=== PATIENT | female | born 1980 | race Caucasian/White ===

== ENCOUNTER → 2017-03-18 10:15 | Outpatient (CLI) | payer OTHER, SELFPAY ==
--- NOTE | 2017-03-18 10:19 | RAD_ITS ---
STUDY: X-RAY CHEST REASON FOR EXAM: Female, 36 years old. Cough and chest congestion. TECHNIQUE: PA and lateral views of the chest. COMPARISON: None. FINDINGS: The lungs are clear and expanded. Scattered calcified granulomas. There is no demonstrated pleural abnormality. Normal size heart. Normal mediastinum and mckay. Normal visualized pulmonary arteries. Normal visualized aortic arch and descending thoracic aorta. Normal visualized thoracic spine. Normal visualized ribs, clavicles, and shoulders. There is no demonstrated abnormality of the visualized soft tissue structures of the upper abdomen. RAD/Chest PA and Lateral IMPRESSION: No acute abnormality is seen. Electronically Signed: Elder Alarcon MD at 10:45 EST Tel [phone], Service support ,
== END ==
PROVIDERS: Family Provider Internal Medicine; PCP Internal Medicine; Visit Provider Internal Medicine
DX: R09.89 Other specified symptoms and signs involving the circulatory and respiratory systems (principal)
CPT/HCPCS: 71046

== ENCOUNTER → 2017-07-30 07:56 | Outpatient (CLI) | payer OTHER, SELFPAY ==
[2017-07-30 10:41] LABS: Hemoglobin A1c 5.3 % (4.2-6.3)
[2017-07-30 10:45] LABS: AST(SGOT) 31 U/L (15-37); Alanine Aminotransfer ALT/SGPT 45 U/L (13-56); Albumin, Serum 3.6 g/dL (3.2-5.0); Alkaline Phosphatase 55 U/L (45-117); Anion Gap 8 (5-15); BUN 12 mg/dL (7-18); BUN/Creat Ratio 17.2 RATIO (10-20); Calcium,Total 8.1 mg/dL (8.5-10.1); Chloride 109 mmol/L (98-107); EST Glomerular Filtration Rate 100 mL/min (>60); Est Glom Filt Rate - Afr Amer 121 mL/min (>60); Free T3 2.8 pg/mL (2.18-3.98); Globulin 3.6 g/dL (2.2-4.2); Glucose 82 mg/dL (74-106); Potassium 3.7 mmol/L (3.5-5.1); Protein, Total 7.2 g/dL (6.4-8.2); Sodium Level 144 mmol/L (136-145); T4 Free Direct 1.06 ng/dL (0.76-1.46); Thyroid Stim Hormone (TSH) 1.95 uIU/mL (0.358-3.74)
== END ==
PROVIDERS: Family Provider Internal Medicine; PCP Internal Medicine; Visit Provider Internal Medicine Endocrinology, Diabetes & Metabolism
DX: E28.2 Polycystic ovarian syndrome (principal); E03.9 Hypothyroidism, unspecified
CPT/HCPCS: 36415; 80053; 83036; 84439; 84443; 84481

== ENCOUNTER → 2017-12-13 08:17 | Outpatient (CLI) | payer OTHER, SELFPAY ==
[2017-12-13 10:20] LABS: Hemoglobin A1c 5.3 % (4.2-6.3)
[2017-12-13 10:31] LABS: BUN 11 mg/dL (7-18); Creatinine, Serum 0.69 mg/dL (0.55-1.02); Glucose 84 mg/dL (74-106)
[2017-12-13 10:32] LABS: AST(SGOT) 21 U/L (15-37); Alanine Aminotransfer ALT/SGPT 43 U/L (13-56); Albumin, Serum 3.7 g/dL (3.2-5.0); Alkaline Phosphatase 62 U/L (45-117); Anion Gap 12 (5-15); BUN/Creat Ratio 15.9 RATIO (10-20); Calcium,Total 8.7 mg/dL (8.5-10.1); Chloride 104 mmol/L (98-107); EST Glomerular Filtration Rate 101 mL/min (>60); Est Glom Filt Rate - Afr Amer 122 mL/min (>60); Globulin 3.8 g/dL (2.2-4.2); Potassium 4.1 mmol/L (3.5-5.1); Protein, Total 7.5 g/dL (6.4-8.2); Sodium Level 142 mmol/L (136-145)
== END ==
PROVIDERS: Family Provider Internal Medicine; PCP Internal Medicine; Referring Provider Internal Medicine Endocrinology, Diabetes & Metabolism; Visit Provider Internal Medicine Endocrinology, Diabetes & Metabolism
DX: E03.9 Hypothyroidism, unspecified (principal); E28.2 Polycystic ovarian syndrome
CPT/HCPCS: 36415; 80053; 83036; 84443

== ENCOUNTER → 2018-05-07 07:18 | Outpatient (CLI) | payer OTHER, SELFPAY ==
[2018-04-04 11:23] VITALS: BMI 48.4
--- NOTE | 2018-05-07 07:23 | BI_ITS ---
MAMMOGRAPHY - BILATERAL SCREENING 3-D VICKIE SYNTHESIS REASON FOR EXAM: Female, 37 years old. Bilateral Screening 3-D tomosynthesis PERTINENT HISTORY: No significant family history. TECHNIQUE: 2-D mammograms and 3-D Vickie synthesis of the breast (s) were performed. CAD was performed. COMPARISON: September 04, 2010 FINDINGS: The breast composition is almost entirely fat. Scattered benign calcifications are stable. There are stable. No dense spiculated masses or suspicious microcalcifications are identified. No architectural distortion is identified. There is no skin thickening or retraction. There has been no significant change since the prior study. BI/SCREENING MAMM (CAD), BILAT IMPRESSION: No mammographic signs of malignancy. Routine yearly mammograms recommended. ASSESSMENT CATEGORY: BIRADS Category 2: Benign. A letter regarding these results will be sent to the patient by the facility within 30 days. FOLLOW UP RECOMMENDATION: Yearly follow up mammogram recommended. (A) Approximately 10% of breast cancers are not detected by mammography. A normal mammogram should not delay biopsy of a clinically suspicious abnormality. Electronically Signed: Sal Gibson MD at 17:41 EDT , Service support ,
== END ==
PROVIDERS: Family Provider Internal Medicine; PCP Internal Medicine; Referring Provider Nurse Practitioner Women's Health; Visit Provider Nurse Practitioner Women's Health
DX: Z12.31 Encounter for screening mammogram for malignant neoplasm of breast (principal)
CPT/HCPCS: 77063; 77067

== ENCOUNTER → 2018-05-10 10:02 | Outpatient (CLI) | payer OTHER, SELFPAY ==
[2018-05-10 09:33] VITALS: BMI 48.7
[2018-05-10 12:42] LABS: HIV - WCH Non-Reactive (Nonreactive)
[2018-05-10 13:00] LABS: Chlamydia Trachomatis by PCR Negative (Negative); Neisserai gonorrhoeae by PCR Negative (Negative); Probe Check PASS; Sample Adequacy Control PASS; Specimen Processing Control PASS
[2018-05-11 20:07] LABS: HCV Quant. RNA PCR HCV Not Detected IU/mL (.)
[2018-05-12 14:50] LABS: HSV 2 IgG < 0.91 index (0.00-0.90)
[2018-05-13 01:30] LABS: Rapid Plasmin Reagin (RPR) NONREACTIVE (NONREACTIVE)
== END ==
PROVIDERS: Family Provider Internal Medicine; PCP Internal Medicine; Referring Provider Nurse Practitioner Women's Health; Visit Provider Nurse Practitioner Women's Health
DX: Z11.3 Encounter for screening for infections with a predominantly sexual mode of transmission (principal)
CPT/HCPCS: 36415; 86592; 86695; 86696; 86703; 87491; 87522; 87591

== ENCOUNTER → 2018-06-27 | Outpatient (CLI) | payer OTHER, SELFPAY ==
[2018-05-10 09:33] VITALS: BMI 48.7
[2018-06-27 10:31] LABS: Hemoglobin A1c 5.3 % (4.2-6.3)
[2018-06-27 10:48] LABS: AST(SGOT) 15 U/L (15-37); Alanine Aminotransfer ALT/SGPT 25 U/L (13-56); Albumin, Serum 3.7 g/dL (3.2-5.0); Alkaline Phosphatase 59 U/L (45-117); Anion Gap 8 (5-15); BUN 13 mg/dL (7-18); BUN/Creat Ratio 17.2 RATIO (10-20); Calcium,Total 8.9 mg/dL (8.5-10.1); Chloride 105 mmol/L (98-107); Cholesterol 158 mg/dL (200); Creatinine, Serum 0.76 mg/dL (0.55-1.02); EST Glomerular Filtration Rate 91 mL/min (>60); Est Glom Filt Rate - Afr Amer 110 mL/min (>60); Globulin 3.7 g/dL (2.2-4.2); Glucose 88 mg/dL (74-106); High Density Lipoprotein 42 mg/dL; Potassium 3.8 mmol/L (3.5-5.1); Protein, Total 7.4 g/dL (6.4-8.2); Sodium Level 139 mmol/L (136-145); T4 Free Direct 1.06 ng/dL (0.76-1.46); Thyroid Stim Hormone (TSH) 2.27 uIU/mL (0.358-3.74); Triglycerides 152 mg/dL; Very Low Density Lipoprotein 30 mg/dL (5-40)
== END | disposition home or self-care (01) ==
LOC: MTLAB 08:02
PROVIDERS: Family Provider Internal Medicine; PCP Internal Medicine; Referring Provider Internal Medicine Endocrinology, Diabetes & Metabolism; Visit Provider Internal Medicine Endocrinology, Diabetes & Metabolism
DX: E28.2 Polycystic ovarian syndrome (principal)
CPT/HCPCS: 36415; 80053; 80061; 83036; 84439; 84443

== ENCOUNTER → 2019-06-28 08:09 | Outpatient (CLI) | payer OTHER, SELFPAY ==
[2018-05-10 09:33] VITALS: BMI 48.7
[2019-06-28 10:04] LABS: Vitamin D,25 Hydroxy 26.3 ng/mL
[2019-06-28 10:10] LABS: Hemoglobin A1c 5.4 % (4.2-6.3)
[2019-06-28 10:21] LABS: AST(SGOT) 31 U/L (15-37); Alanine Aminotransfer ALT/SGPT 49 U/L (13-56); Albumin, Serum 3.7 g/dL (3.2-5.0); Alkaline Phosphatase 60 U/L (45-117); Anion Gap 5 (5-15); BUN 13 mg/dL (7-18); BUN/Creat Ratio 17.7 RATIO (10-20); Calcium,Total 8.9 mg/dL (8.5-10.1); Chloride 107 mmol/L (98-107); Cholesterol 190 mg/dL (200); Creatinine, Serum 0.73 mg/dL (0.55-1.02); EST Glomerular Filtration Rate 94 mL/min (>60); Est Glom Filt Rate - Afr Amer 114 mL/min (>60); Globulin 3.6 g/dL (2.2-4.2); Glucose 92 mg/dL (74-106); High Density Lipoprotein 44 mg/dL; Protein, Total 7.3 g/dL (6.4-8.2); Sodium Level 141 mmol/L (136-145); T4 Free Direct 1.02 ng/dL (0.76-1.46); Thyroid Stim Hormone (TSH) 2.31 uIU/mL (0.358-3.74); Triglycerides 134 mg/dL; Very Low Density Lipoprotein 27 mg/dL (5-40)
== END ==
PROVIDERS: PCP Internal Medicine; Referring Provider Internal Medicine Endocrinology, Diabetes & Metabolism; Visit Provider Internal Medicine Endocrinology, Diabetes & Metabolism
DX: E55.9 Vitamin D deficiency, unspecified (principal); E03.9 Hypothyroidism, unspecified; E28.2 Polycystic ovarian syndrome
CPT/HCPCS: 36415; 80053; 80061; 82306; 83036; 84439; 84443

== ENCOUNTER → 2019-08-07 | Outpatient (CLI) | payer OTHER, SELFPAY ==
[2019-08-07 11:05] VITALS: BMI 48.7
[2019-08-11 19:05] LABS: HPV APTIMA, High Risk Negative (Negative)
== END | disposition home or self-care (01) ==
LOC: LABSPEC 15:24
PROVIDERS: PCP Internal Medicine; Visit Provider Nurse Practitioner Women's Health
DX: Z12.4 Encounter for screening for malignant neoplasm of cervix (principal)
CPT/HCPCS: 87624; 88175; G0145

== ENCOUNTER → 2019-08-24 12:36 | Outpatient (CLI) | payer OTHER, SELFPAY ==
[2019-08-07 11:05] VITALS: BMI 48.7
--- NOTE | 2019-08-24 12:37 | US_ITS ---
STUDY: ULTRASOUND OF THE FEMALE PELVIS - COMPLETE REASON FOR EXAM: Female, 39 years old. Irregular menses LMP: August 14, 2019. TECHNIQUE: Transabdominal and Transvaginal TECHNICAL QUALITY: Adequate. COMPARISON: None. FINDINGS: The uterus is anteverted and is in a midline position. The uterus is enlarged and measures 12.2 cm x 8.4 cm x 5.8 cm. There is a Nabothian cyst of the cervix. The endometrium is thickened and measures 33 mm in thickness, and is hyperechoic. There is no demonstrated endometrial mass. There is no demonstrated myometrial mass. I.U.D. - The patient does not have an I.U.D. The right ovary is visualized. The right ovary measures 2.7 cm x 1.9 cm x 2.8 cm. There is no right ovarian cyst or ovarian mass. There is no visualized right adnexal mass or complex lesion. There is normal arterial and normal venous vascularity. The left ovary is visualized. The left ovary measures 2.6 cm x 2.3 cm x 2.6 cm. There is no left ovarian cyst or ovarian mass. There is no visualized left adnexal mass or complex lesion. There is normal arterial and normal venous vascularity. There is no fluid in the cul-de-sac. The pre void volume of the bladder was 20 ml. Polycystic ovary disease: No. US/Pelvic (Non ) IMPRESSION: Enlarged uterus with a thickened endometrium. Electronically Signed: Elder Alarcon, at 15:33 EDT , Service support ,
--- NOTE | 2019-08-24 12:37 | US_ITS ---
STUDY: ULTRASOUND OF THE FEMALE PELVIS - COMPLETE REASON FOR EXAM: Female, 39 years old. Irregular menses LMP: August 14, 2019. TECHNIQUE: Transabdominal and Transvaginal TECHNICAL QUALITY: Adequate. COMPARISON: None. FINDINGS: The uterus is anteverted and is in a midline position. The uterus is enlarged and measures 12.2 cm x 8.4 cm x 5.8 cm. There is a Nabothian cyst of the cervix. The endometrium is thickened and measures 33 mm in thickness, and is hyperechoic. There is no demonstrated endometrial mass. There is no demonstrated myometrial mass. I.U.D. - The patient does not have an I.U.D. The right ovary is visualized. The right ovary measures 2.7 cm x 1.9 cm x 2.8 cm. There is no right ovarian cyst or ovarian mass. There is no visualized right adnexal mass or complex lesion. There is normal arterial and normal venous vascularity. The left ovary is visualized. The left ovary measures 2.6 cm x 2.3 cm x 2.6 cm. There is no left ovarian cyst or ovarian mass. There is no visualized left adnexal mass or complex lesion. There is normal arterial and normal venous vascularity. There is no fluid in the cul-de-sac. The pre void volume of the bladder was 20 ml. Polycystic ovary disease: No. US/Transvaginal Non- IMPRESSION: Enlarged uterus with a thickened endometrium. Electronically Signed: Elder Alarcon, at 15:33 EDT , Service support ,
--- NOTE | 2019-08-24 12:37 | BI_ITS ---
MAMMOGRAPHY - BILATERAL SCREENING REASON FOR EXAM: Female, 39 years old. Routine annual screening examination. PERTINENT HISTORY: Grandmother with breast cancer. TECHNIQUE: Digital bilateral breast vickie (3D mammographic acquisition) in the CC and MLO projections. 2-D mediolateral oblique (MLO) and craniocaudad (CC) views of both breasts were obtained. CAD: Full Field Digital Mammography with Computer Added Detection was performed. COMPARISON: Comparison is made with prior examination of May 07, 2018. FINDINGS: Breast Composition: The breasts are almost entirely fatty. There are no dominant masses or suspicious calcifications. Stable benign-appearing bilateral axillary lymph nodes. No other significant abnormalities are identified. There has been no significant change since the prior study. BI/SCREEN MAMM (CAD) W/VICKIE BILAT IMPRESSION: Stable bilateral screening mammogram. Yearly follow-up mammogram recommended. (A) ASSESSMENT CATEGORY: BIRADS Category 2: Benign. A letter regarding these results will be sent to the patient by the facility within 30 days. Approximately 10% of breast cancers are not detected by mammography. A normal mammogram should not delay biopsy of a clinically suspicious abnormality. [id number] Electronically Signed: Elder Alarcon, at 14:19 EDT , Service support ,
== END ==
LOC: OPBI 12:37
PROVIDERS: PCP Internal Medicine; Referring Provider Obstetrics & Gynecology; Visit Provider Obstetrics & Gynecology
DX: N92.1 Excessive and frequent menstruation with irregular cycle (principal); Z80.3 Family history of malignant neoplasm of breast; Z12.31 Encounter for screening mammogram for malignant neoplasm of breast
CPT/HCPCS: 76830; 76856; 77063; 77067

== ENCOUNTER → 2019-08-30 15:50 | Outpatient (CLI) | payer OTHER, SELFPAY ==
[2019-08-30 15:33] VITALS: BMI 51.0
--- NOTE | 2019-08-30 15:50 | EMB_PTH ---
PATIENT: DOMONIQUE BRYSON LOC: [facility] U#:[id number] AGE/SX: 44/F ROOM: RE08/30/[address]: RANJITH Mcnamara : 1980 BED: DIS: SPEC #: [id number] RECD: 08/30/19 16:46 STATUS: ABEL FILIBERTO #: [id number] JUNI: 08/30/19 15:[address]: Cara Yu NP DEPT: SURGICAL PATHOLOGY RECD BY: Emmanuel Hassan ENTERED: 08/31/19 08:55 SP TYPE: ENDOM BX/C BLANCHE DR: Dr. Olive John DO Tissues: Endometrium, NOS Procedures: Surgery Specimen Level IV HEADER OPERATION: Endometrial biopsy PRE-OP DIAGNOSIS: Abnormal uterine biopsy TISSUE SUBMITTED: Endometrial biopsy MICROSCOPIC DIAGNOSIS Endometrium, biopsy: Strips of benign superficial glandular mucosa. See comment. AM:dalton 09/01/19 COMMENT The specimen primarily consists of clotted blood. Clinical correlation is suggested. MICROSCOPIC DESCRIPTION Slides are reviewed. GROSS DESCRIPTION Received is one container labeled with the patient's name and not further designated. The specimen consists of multiple fragments of hemorrhagic soft tissue that in aggregate measure 3 x 2.5 x 0.2 cm. The specimen is totally submitted in one cassette. / SJ:rg 08/31/19 TC:5 [facility]: [id number]
== END ==
PROVIDERS: PCP Internal Medicine; Referring Provider Nurse Practitioner Women's Health; Visit Provider Nurse Practitioner Women's Health
DX: R93.89 Abnormal findings on diagnostic imaging of other specified body structures (principal)
CPT/HCPCS: 88305

== ENCOUNTER → 2019-09-11 09:23 | Outpatient (CLI) | payer OTHER, SELFPAY ==
[2019-08-30 15:33] VITALS: BMI 51.0
[2019-09-11 13:12] LABS: AST(SGOT) 28 U/L (15-37); Alanine Aminotransfer ALT/SGPT 46 U/L (13-56); Albumin, Serum 3.8 g/dL (3.2-5.0); Alkaline Phosphatase 62 U/L (45-117); Anion Gap 5 (5-15); BUN 12 mg/dL (7-18); BUN/Creat Ratio 16.3 RATIO (10-20); CRP < 2.90 mg/L (0.0-3.0); Calcium,Total 8.6 mg/dL (8.5-10.1); Chloride 105 mmol/L (98-107); Creatinine, Serum 0.74 mg/dL (0.55-1.02); EST Glomerular Filtration Rate 93 mL/min (>60); Est Glom Filt Rate - Afr Amer 113 mL/min (>60); Ferritin 70 ng/mL (8-252); Free T3 2.2 pg/mL (2.18-3.98); Globulin 3.7 g/dL (2.2-4.2); Glucose 78 mg/dL (74-106); Iron 83 ug/dL (50-170); Iron Binding Capacity,Total 348 ug/dL (250-450); Potassium 3.7 mmol/L (3.5-5.1); Protein, Total 7.5 g/dL (6.4-8.2); Rheumatoid Factor < 10.0 IU/mL (<15); Sodium Level 138 mmol/L (136-145); T4 Free Direct 1.01 ng/dL (0.76-1.46); Thyroid Stim Hormone (TSH) 2.42 uIU/mL (0.358-3.74)
[2019-09-12 15:27] LABS: ANTINUCLEAR ANTIBODIES DIRECT Negative (Negative)
== END ==
PROVIDERS: PCP Internal Medicine; Referring Provider Internal Medicine Endocrinology, Diabetes & Metabolism; Visit Provider Internal Medicine Endocrinology, Diabetes & Metabolism
DX: E03.9 Hypothyroidism, unspecified (principal); E55.9 Vitamin D deficiency, unspecified; E04.9 Nontoxic goiter, unspecified; E66.9 Obesity, unspecified; E28.2 Polycystic ovarian syndrome
CPT/HCPCS: 36415; 80053; 82728; 83540; 83550; 84439; 84443; 84481; 86038; 86140; 86431

== ENCOUNTER → 2019-09-13 11:01 | Outpatient (CLI) | payer OTHER, SELFPAY ==
[2019-09-13 10:29] VITALS: BMI 50.2
[2019-09-13 11:18] LABS: Absolute Lymphocyte Count 2.36 X10^3/uL (0.83-4.51); Absolute Neutrophil Count 2.2 X10^3/uL (2.0-7.7); Basophil# 0.03 X10^3/uL; Basophil% 0.6 % (0-1); Eosinophil# 0.19 X10^3/uL; Eosinophils% 3.7 % (0-5); Hematocrit 43.6 % (37-47); Hemoglobin 14.4 g/dL (12.0-15.0); Lymphocyte # 2.36 X10^3/ul (4.0); Lymphocyte % 45.6 % (19-41); Mean Corpuscular Hgb 28.5 pg (27.0-32.0); Mean Corpuscular Volume 86.3 fL (81-99); Mean Platelet Vol. 9.5 fl (6.2-12.0); Monocyte# 0.42 X10^3/uL; Monocyte% 8.1 % (0-10); NRBC Flagged by Analyzer 0 % (0-5); Neutrophil # 2.16 X10^3/uL (2.7-7.7); Neutrophil % 41.6 % (47-70); Platelet Count 235 K/mm3 (150-450); RBC Distribution Width CV 13.2 % (11.6-14.6); RBC Distribution Width SD 40.9 fl (35.1-43.9); Red Blood Count 5.05 M/mm3 (4.2-5.4); White Blood Count 5.2 K/mm3 (4.4-11.0)
== END ==
PROVIDERS: PCP Internal Medicine; Referring Provider Obstetrics & Gynecology; Visit Provider Obstetrics & Gynecology
DX: N92.1 Excessive and frequent menstruation with irregular cycle (principal)
CPT/HCPCS: 36415; 85025

== ENCOUNTER → 2020-01-26 08:45 | Outpatient (CLI) | payer OTHER, SELFPAY ==
[2019-09-13 10:29] VITALS: BMI 50.2
[2020-01-26 12:30] LABS: ALB/GLOB Ratio 0.9 RATIO (0.9-2.4); AST(SGOT) 27 U/L (15-37); Alanine Aminotransfer ALT/SGPT 47 U/L (13-56); Albumin, Serum 3.6 g/dL (3.2-5.0); Alkaline Phosphatase 59 U/L (45-117); Anion Gap 7 (5-15); BUN 13 mg/dL (7-18); BUN/Creat Ratio 17.4 RATIO (10-20); Calcium,Total 8.9 mg/dL (8.5-10.1); Chloride 106 mmol/L (98-107); Creatinine, Serum 0.75 mg/dL (0.55-1.02); EST Glomerular Filtration Rate 92 mL/min (>60); Est Glom Filt Rate - Afr Amer 111 mL/min (>60); Free T3 2.6 pg/mL (2.18-3.98); Globulin 3.8 g/dL (2.2-4.2); Glucose 91 mg/dL (74-106); Protein, Total 7.4 g/dL (6.4-8.2); Sodium Level 139 mmol/L (136-145); T4 Free Direct 0.98 ng/dL (0.76-1.46); Thyroid Stim Hormone (TSH) 1.76 uIU/mL (0.358-3.74)
== END ==
PROVIDERS: PCP Internal Medicine; Referring Provider Internal Medicine Endocrinology, Diabetes & Metabolism; Visit Provider Internal Medicine Endocrinology, Diabetes & Metabolism
DX: E28.2 Polycystic ovarian syndrome (principal); E03.9 Hypothyroidism, unspecified; E04.9 Nontoxic goiter, unspecified; M25.50 Pain in unspecified joint; N92.0 Excessive and frequent menstruation with regular cycle
CPT/HCPCS: 36415; 80053; 83036; 84439; 84443; 84481

== ENCOUNTER → 2020-01-26 09:11 | Outpatient (CLI) | payer OTHER, SELFPAY ==
[2019-09-13 10:29] VITALS: BMI 50.2
--- NOTE | 2020-01-26 09:20 | RAD_ITS ---
STUDY: X-RAY - SOFT TISSUE NECK REASON FOR EXAM: Female, 39 years old. GOITER TECHNIQUE: 2 view(s) of the neck were obtained. COMPARISON: None. FINDINGS: Normal visualized nasopharynx, oropharynx, hypopharynx. Normal epiglottis. Normal visualized subglottic tracheal air column. Normal prevertebral soft tissue structures. Normal visualized osseous structures. The soft tissue structures are unremarkable. RAD/Neck for Soft Tissue IMPRESSION: Normal x-ray soft tissue neck. Electronically Signed: Fran Fountain MD at 8:47 EST Tel , Service support ,
== END ==
PROVIDERS: PCP Internal Medicine; Referring Provider Internal Medicine Pulmonary Disease; Visit Provider Internal Medicine Pulmonary Disease
DX: E04.9 Nontoxic goiter, unspecified (principal)
CPT/HCPCS: 70360

== ENCOUNTER 2020-07-18 09:04 | Emergency (ER) | payer OTHER, SELFPAY ==
[2020-07-17 09:35] VITALS: BMI 50.2
[2020-07-18 09:05] VITALS: BP 156/89; PULSE 63; RESP 15; TEMP 36.8; O2SAT 97; BMI 50.1
--- NOTE | 2020-07-18 09:14 | CT_ITS ---
STUDY: CT BRAIN WITHOUT CONTRAST REASON FOR EXAM: Female, 40 years old. Paresthesias. Right arm numbness. RADIATION DOSAGE (If Supplied By Facility): CTDIvol = ( 44.99 ) mGy, DLP = ( 796.11 ) mGycm TECHNIQUE: Transaxial CT imaging of the brain was performed without administration of intravenous contrast material. Individualized dose optimization techniques were used for this CT. COMPARISON: No relevant priors. FINDINGS: Normal soft tissue structures. Normal calvarium. Normal size ventricles and extra-axial spaces for the patient''s age. Normal white matter tracts of the cerebral hemispheres. Normal basal ganglia and thalami. Normal brainstem. Normal cerebellum. There is no intracranial hemorrhage. There are no findings of an acute ischemic infarction. Normal visualized paranasal sinuses. CT/Brain/Head without Contrast IMPRESSION: Normal unenhanced CT scan of the brain. Electronically Signed: Elder Alarcon MD at 10:10 EDT , Service support ,
--- NOTE | 2020-07-18 09:15 | EX.ED.DYSGE1 ---
HPI History of Present Illness Chief Complaint: Numb/Ting Informant: patient Narrative Narrative: 40-year-old female presents with 3 weeks of right arm paresthesias. She describes as a tingling sensation. She states now it is involving both hands and her feet. She notes at times she feels like she is going to have muscle spasms in her legs. 2 weeks ago she went to the dentist and had a normal checkup and now she is experiencing some pain on the right lower teeth. She denies any headache or vision changes. No speech difficulty or muscle weakness. She went to a chiropractor who recommended she see her doctor. She called her doctor's office today and they recommended she come to emergency. [facility] Medical History (Updated 07/18/20 @ 10:[address] Ankit Berry DO) History of depression PCOS (polycystic ovarian syndrome) Thyroid disorder Home Medications levothyroxine 75 mcg tablet 75 mcg PO DAILY 04/04/18 [History Last Taken Unknown] metformin 1,000 mg tablet 500 mg PO BID tab 08/07/19 [History Last Taken Unknown] semaglutide 7 mg tablet 7 mg PO DAILY 08/07/19 [History Last Taken Unknown] Allergy/AdvReac Type Severity Reaction Status Date / Time No Known Allergies Allergy Verified 07/18/20 09:07 Family History Unknown Heart disease Cancer ovarian Breast cancer Surgical History delivery delivered Hx laparoscopic cholecystectomy Social History Smoking Status: Never smoker alcohol intake: current alcohol intake frequency: holidays/special occasions only substance use type: does not use caffeine: Yes what type of physical activity do you participate in: other details: crossfit frequency: 3-4 times per week seatbelt use: always do you feel safe at home: Yes additional social history: Single- Works at [employer] ED Constitutional Constitutional ED: Denies chills or weight loss Eyes Eyes: Denies change in vision or diplopia ENT ENT ED: Reports other Details: Dental pain ; Denies ear pain, rhinorrhea or sore throat Cardiovascular Cardiovascular: Denies chest pain, orthopnea, palpitations or racing heartbeat Respiratory/Chest Respiratory/Chest: Denies cough, dyspnea or orthopnea Gastrointestinal Gastrointestinal: Denies abdominal pain, diarrhea, nausea or vomiting Genitourinary Genitourinary ED: Denies dysuria, hematuria or urinary frequency Musculoskeletal Musculoskeletal: Denies arthralgias or myalgias Integumentary Denies abscess or rash Neurologic Neurologic: Reports paresthesias; Denies headache(s) or weakness Psychiatric Psychiatric: Denies anxiety, depression, suicidal ideation or suicidal thoughts Endocrine Endocrinology: Denies polydipsia, polyphagia or polyuria Allergic/Immunologic Allergic/Immunologic ED: Denies mouth swelling, tongue swelling or urticaria EXAM Physical Exam Const Vital Signs: 07/18/20 09:05 Temperature 98.2 F Temperature Source Temporal Pulse Rate 63 Respiratory Rate 15 Blood Pressure 156/89 H Blood Pressure Mean 111 Pulse Ox 97 Oxygen Delivery Method Room Air Positive well nourished and well developed General Appearance ED: well developed HEENT Reports normocephalic, head/scalp atraumatic and moist mucous membranes Eyes PERRL and EOMs intact bilaterally Neck no lymphadenopathy, supple and no JVD Resp normal respiratory effort and clear to auscultation bilaterally Cardio regular rate, regular rhythm and no murmurs GI normal to inspection, nondistended, normoactive bowel sounds and non-tender Palpation: soft Back/Spine no CVA tenderness and normal ROM Extremity normal to inspection General Extremety ED: Negative for edema General Extremity: Negative for edema Neuro oriented x3 and CN's II-XII intact bilaterally Sensorium / Orientation: alert Motor Exam: strength 5/5 throughout Psych mental status grossly normal Mood & Affect: Negative for depressed or tearful Skin no rashes or lesions noted and no wounds MDM MDM MDM Narrative Medical decision making narrative: Basic blood work was normal. Patient had a history of hypocalcemia therefore electrolytes were checked and were negative. Glucose 124. CT the brain demonstrates no mass or subacute/acute stroke. Patient was advised on follow-up. Return if worsening or concerns Lab Data Labs: Laboratory Results - last 24 hr 07/18/20 07/18/20 08:25 08:25 WBC 4.2 L RBC 5.00 Hgb 14.1 Hct 43.8 MCV 87.6 MCH 28.2 MCHC 32.2 RDW Std Deviation 41.7 RDW Coeff of Karishma 13.2 Plt Count 208 MPV 9.7 Immature Gran % (Auto) 0.500 Neut % (Auto) 44.2 L Lymph % (Auto) 44.4 H Miller % (Auto) 6.9 Eos % (Auto) 3.8 Baso % (Auto) 0.2 Absolute Neuts (auto) 1.9 L Absolute Lymphs (auto) 1.88 Nucleated RBC % 0 Sodium 141 Potassium 3.7 Chloride 104 Carbon Dioxide 28.0 Anion Gap 9 BUN 12 Creatinine 0.76 Estim Creat Clear Calc 99.26 Est GFR (MDRD) Af Amer 108 Est GFR (MDRD) Non-Af 89 BUN/Creatinine Ratio 15.7 Glucose 124 H Calcium 8.6 Magnesium 1.8 Total Bilirubin 0.60 AST 23 ALT 37 Alkaline Phosphatase 62 Total Protein 7.3 Albumin 3.6 Globulin 3.7 Albumin/Globulin Ratio 1.0 Radiography Diagnostic Testing: Radiology Impression Brain CT 07/18/20 09:14 IMPRESSION: Normal unenhanced CT scan of the brain. Electronically Signed: Elder Alarcon MD at 10:10 EDT , Service support , Discharge Plan Triage Chief Complaint: Numb/Ting ED Provider: Ankit Berry Dx/Rx/DC Orders Clinical Impression: Paresthesias Instructions: ED Paraesthesias Prescriptions: No Action levothyroxine 75 mcg tablet 75 mcg PO DAILY RF: 0 metformin 1,000 mg tablet 500 mg PO BID RF: 0 Rybelsus 7 mg tablet 7 mg PO DAILY RF: 0 Primary Care Provider: Olive John Referrals: Olive John DO [Primary Care Provider] - 1 Week Disposition Disposition: Home, self care
[2020-07-18 09:40] LABS: Absolute Lymphocyte Count 1.88 X10^3/uL (0.83-4.51); Absolute Neutrophil Count 1.9 X10^3/uL (2.0-7.7); Basophil# 0.01 X10^3/uL; Basophil% 0.2 % (0-1); Eosinophil# 0.16 X10^3/uL; Eosinophils% 3.8 % (0-5); Hematocrit 43.8 % (37-47); Hemoglobin 14.1 g/dL (12.0-15.0); Lymphocyte # 1.88 X10^3/ul (0.83-4.51); Lymphocyte % 44.4 % (19-41); Mean Corp Hgb Conc 32.2 g/dL (32-36); Mean Corpuscular Hgb 28.2 pg (27.0-32.0); Mean Corpuscular Volume 87.6 fL (81-99); Mean Platelet Vol. 9.7 fl (6.2-12.0); Monocyte# 0.29 X10^3/uL; Monocyte% 6.9 % (0-10); NRBC Flagged by Analyzer 0 % (0-5); Neutrophil # 1.87 X10^3/uL (2.7-7.7); Neutrophil % 44.2 % (47-70); Platelet Count 208 K/mm3 (150-450); RBC Distribution Width CV 13.2 % (11.6-14.6); RBC Distribution Width SD 41.7 fl (35.1-43.9); White Blood Count 4.2 K/mm3 (4.4-11.0)
[2020-07-18 09:55] LABS: AST(SGOT) 23 U/L (15-37); Alanine Aminotransfer ALT/SGPT 37 U/L (13-56); Albumin, Serum 3.6 g/dL (3.2-5.0); Alkaline Phosphatase 62 U/L (45-117); Anion Gap 9 (5-15); BUN 12 mg/dL (7-18); BUN/Creat Ratio 15.7 RATIO (10-20); Calcium,Total 8.6 mg/dL (8.5-10.1); Chloride 104 mmol/L (98-107); Creatinine, Serum 0.76 mg/dL (0.55-1.02); EST Glomerular Filtration Rate 89 mL/min (>60); Est Glom Filt Rate - Afr Amer 108 mL/min (>60); Estimated Creatinine Clearance 99.26 ml/min; Globulin 3.7 g/dL (2.2-4.2); Glucose 124 mg/dL (74-106); Magnesium 1.8 mg/dL (1.6-2.6); Potassium 3.7 mmol/L (3.5-5.1); Protein, Total 7.3 g/dL (6.4-8.2); Sodium Level 141 mmol/L (136-145)
== END 2020-07-18 11:41 | disposition home or self-care (01) ==
PROVIDERS: Emergency Provider Emergency Medicine; PCP Internal Medicine
DX: R20.2 Paresthesia of skin (principal); E28.2 Polycystic ovarian syndrome; E07.9 Disorder of thyroid, unspecified; Z79.84 Long term (current) use of oral hypoglycemic drugs; Z79.899 Other long term (current) drug therapy
CPT/HCPCS: 70450; 80053; 83735; 85025; 99283; A4216

== ENCOUNTER → 2020-12-27 09:41 | Outpatient (CLI) | payer OTHER, SELFPAY ==
[2020-12-27 12:30] LABS: Absolute Lymphocyte Count 2.27 X10^3/uL (0.83-4.51); Absolute Neutrophil Count 2.1 X10^3/uL (2.0-7.7); Basophil# 0.02 X10^3/uL; Basophil% 0.4 % (0-1); Eosinophil# 0.17 X10^3/uL; Eosinophils% 3.4 % (0-5); Hemoglobin 14.4 g/dL (12.0-15.0); Lymphocyte # 2.27 X10^3/ul (0.83-4.51); Mean Corp Hgb Conc 32.7 g/dL (32-36); Mean Corpuscular Hgb 28.5 pg (27.0-32.0); Mean Corpuscular Volume 87.1 fL (81-99); Mean Platelet Vol. 9.8 fl (6.2-12.0); Monocyte# 0.42 X10^3/uL; Monocyte% 8.3 % (0-10); NRBC Flagged by Analyzer 0 % (0-5); Neutrophil # 2.14 X10^3/uL (2.7-7.7); Neutrophil % 42.5 % (47-70); Platelet Count 230 K/mm3 (150-450); RBC Distribution Width CV 13.2 % (11.6-14.6); RBC Distribution Width SD 41.9 fl (35.1-43.9); Red Blood Count 5.05 M/mm3 (4.2-5.4)
[2020-12-27 12:50] LABS: ALB/GLOB Ratio 0.9 RATIO (0.9-2.4); AST(SGOT) 29 U/L (15-37); Alanine Aminotransfer ALT/SGPT 46 U/L (13-56); Albumin, Serum 3.6 g/dL (3.2-5.0); Alkaline Phosphatase 68 U/L (45-117); Anion Gap 6 (5-15); BUN 13 mg/dL (7-18); BUN/Creat Ratio 20.6 RATIO (10-20); Calcium,Total 8.9 mg/dL (8.5-10.1); Chloride 107 mmol/L (98-107); Cholesterol 188 mg/dL (200); Creatinine, Serum 0.63 mg/dL (0.55-1.02); EST Glomerular Filtration Rate 111 mL/min (>60); Est Glom Filt Rate - Afr Amer 134 mL/min (>60); Ferritin 86 ng/mL (8-252); Globulin 3.9 g/dL (2.2-4.2); Glucose 85 mg/dL (74-106); High Density Lipoprotein 47 mg/dL; Potassium 3.9 mmol/L (3.5-5.1); Protein, Total 7.5 g/dL (6.4-8.2); Sodium Level 140 mmol/L (136-145); T4 Free Direct 1.06 ng/dL (0.76-1.46); Thyroid Stim Hormone (TSH) 1.79 uIU/mL (0.358-3.74); Triglycerides 128 mg/dL; Very Low Density Lipoprotein 26 mg/dL (5-40)
[2020-12-27 12:52] LABS: Vitamin B12 395 pg/mL (211-911); Vitamin D,25 Hydroxy 24.1 ng/mL
== END ==
PROVIDERS: PCP Internal Medicine; Referring Provider Internal Medicine Endocrinology, Diabetes & Metabolism; Visit Provider Internal Medicine Endocrinology, Diabetes & Metabolism
DX: E28.2 Polycystic ovarian syndrome (principal); R20.2 Paresthesia of skin; E55.9 Vitamin D deficiency, unspecified; R25.2 Cramp and spasm
CPT/HCPCS: 36415; 80053; 80061; 82306; 82607; 82728; 84439; 84443; 85025

== ENCOUNTER → 2021-06-11 | Outpatient (CLI) | payer OTHER, SELFPAY ==
--- NOTE | 2021-06-11 07:17 | BI_ITS ---
MAMMOGRAPHY - BILATERAL SCREENING REASON FOR EXAM: Female, 41 years old. Routine annual screening examination. PERTINENT HISTORY: Grandmother with breast cancer. TECHNIQUE: Digital bilateral breast vickie (3D mammographic acquisition) in the CC and MLO projections. 2-D mediolateral oblique (MLO) and craniocaudad (CC) views of both breasts were obtained. CAD: Full Field Digital Mammography with Computer Added Detection was performed. COMPARISON: Comparison is made with prior study dated 08/24/2019 and 05/07/2018. FINDINGS: Breast Composition: The breasts are almost entirely fatty. There are no dominant masses or suspicious calcifications. Stable small benign-appearing bilateral axillary lymph nodes. No other significant abnormalities are identified. There has been no significant change since the prior study. BI/SCRN MAMM (CAD)W/VICKIE BILAT IMPRESSION: Stable bilateral screening mammogram. Yearly follow-up mammogram recommended. (A) ASSESSMENT CATEGORY: BIRADS Category 2: Benign. A letter regarding these results will be sent to the patient by the facility within 30 days. Approximately 10% of breast cancers are not detected by mammography. A normal mammogram should not delay biopsy of a clinically suspicious abnormality. [id number] Electronically Signed: Elder Alarcon MD at 8:52 EDT ,
== END | disposition home or self-care (01) ==
LOC: OPBI 07:16
PROVIDERS: PCP Internal Medicine; Visit Provider Nurse Practitioner Women's Health
DX: Z12.31 Encounter for screening mammogram for malignant neoplasm of breast (principal)
CPT/HCPCS: 77063; 77067

== ENCOUNTER → 2021-12-10 | Outpatient (CLI) | payer OTHER, SELFPAY ==
[2021-12-10 10:05] LABS: Absolute Lymphocyte Count 2.27 X10^3/uL (0.83-4.51); Basophil# 0.03 X10^3/uL; Basophil% 0.6 % (0-1); Eosinophil# 0.15 X10^3/uL; Eosinophils% 3.1 % (0-5); Hematocrit 42.7 % (37-47); Hemoglobin 14.3 g/dL (12.0-15.0); Lymphocyte # 2.27 X10^3/ul (0.83-4.51); Lymphocyte % 46.8 % (19-41); Mean Corp Hgb Conc 33.5 g/dL (32-36); Mean Corpuscular Hgb 28.9 pg (27.0-32.0); Mean Corpuscular Volume 86.3 fL (81-99); Mean Platelet Vol. 9.9 fl (6.2-12.0); Monocyte# 0.43 X10^3/uL; Monocyte% 8.9 % (0-10); NRBC Flagged by Analyzer 0 % (0-5); Neutrophil # 1.95 X10^3/uL (2.7-7.7); Neutrophil % 40.2 % (47-70); Platelet Count 229 K/mm3 (150-450); RBC Distribution Width CV 13.2 % (11.6-14.6); RBC Distribution Width SD 40.6 fl (35.1-43.9); Red Blood Count 4.95 M/mm3 (4.2-5.4); White Blood Count 4.9 K/mm3 (4.4-11.0)
[2021-12-10 10:22] LABS: Erythrocyte Sedimentation Rate 18 mm/hr (0-30)
[2021-12-10 10:52] LABS: AST(SGOT) 18 U/L (15-37); Alanine Aminotransfer ALT/SGPT 31 U/L (13-56); Albumin, Serum 3.5 g/dL (3.2-5.0); Alkaline Phosphatase 65 U/L (45-117); Anion Gap 7 (5-15); BUN 12 mg/dL (7-18); BUN/Creat Ratio 19.6 RATIO (10-20); CRP < 2.90 mg/L (0.0-3.0); Calcium,Total 8.7 mg/dL (8.5-10.1); Chloride 108 mmol/L (98-107); Cholesterol 195 mg/dL (200); Creatinine, Serum 0.61 mg/dL (0.55-1.02); EST Glomerular Filtration Rate 114 mL/min (>60); Est Glom Filt Rate - Afr Amer 138 mL/min (>60); Globulin 3.6 g/dL (2.2-4.2); Glucose 101 mg/dL (74-106); High Density Lipoprotein 46 mg/dL; Potassium 3.9 mmol/L (3.5-5.1); Protein, Total 7.1 g/dL (6.4-8.2); Rheumatoid Factor < 10.0 IU/mL (<15); Sodium Level 139 mmol/L (136-145); Thyroid Stim Hormone (TSH) 2.79 uIU/mL (0.358-3.74); Triglycerides 94 mg/dL; Very Low Density Lipoprotein 19 mg/dL (5-40)
[2021-12-12 15:46] LABS: ANTINUCLEAR ANTIBODIES DIRECT Negative (Negative)
[2021-12-13 09:43] LABS: CCP IgG Antibodies 3 units (0-19)
== END | disposition home or self-care (01) ==
LOC: MTLAB 08:09
PROVIDERS: PCP Internal Medicine; Referring Provider Internal Medicine; Visit Provider Internal Medicine
DX: M25.59 Pain in other specified joint (principal); E03.9 Hypothyroidism, unspecified; Z13.220 Encounter for screening for lipoid disorders
CPT/HCPCS: 36415; 80053; 80061; 84443; 85025; 85652; 86038; 86140; 86200; 86431

== ENCOUNTER → 2022-06-30 | Outpatient (CLI) | payer OTHER, SELFPAY ==
--- NOTE | 2022-06-30 07:46 | BI_ITS ---
MAMMOGRAPHY - BILATERAL SCREENING REASON FOR EXAM: Female, 42 years old. Routine annual screening examination. PERTINENT HISTORY: Grandmother with breast cancer. TECHNIQUE: Digital bilateral breast vickie (3D mammographic acquisition) in the CC and MLO projections. 2-D mediolateral oblique (MLO) and craniocaudad (CC) views of both breasts were obtained. CAD: Full Field Digital Mammography with Computer Added Detection was performed. COMPARISON: Comparison is made with prior study dated June 11, 2021 and August 24, 2019. FINDINGS: Breast Composition: The breasts are almost entirely fatty. There are no dominant masses or suspicious calcifications. Stable small benign-appearing bilateral axillary lymph nodes. No other significant abnormalities are identified. There has been no significant change since the prior study. BI/SCRN MAMM (CAD)W/VICKIE BILAT IMPRESSION: Stable bilateral screening mammogram. Yearly follow-up mammogram recommended. (A) ASSESSMENT CATEGORY: BIRADS Category 2: Benign. A letter regarding these results will be sent to the patient by the facility within 30 days. Approximately 10% of breast cancers are not detected by mammography. A normal mammogram should not delay biopsy of a clinically suspicious abnormality. [id number] Electronically Signed: Elder Alarcon MD at 9:06 EDT ,
== END | disposition home or self-care (01) ==
LOC: OPBI 07:45
PROVIDERS: PCP Internal Medicine; Referring Provider Nurse Practitioner Women's Health; Visit Provider Nurse Practitioner Women's Health
DX: Z12.31 Encounter for screening mammogram for malignant neoplasm of breast (principal); Z80.3 Family history of malignant neoplasm of breast
CPT/HCPCS: 77063; 77067

== ENCOUNTER → 2023-03-23 | Outpatient (CLI) | payer OTHER, SELFPAY ==
--- NOTE | 2023-03-23 14:52 | US_ITS ---
INDICATION: thyromegaly EXAMINATION: Ultrasound US Thyroid (eg thyroid, parathyroid, parotid) TECHNIQUE: Ramirez scale and color doppler imaging was performed of the thyroid gland. COMPARISON: 12/02/2015 FINDINGS: RIGHT THYROID LOBE: 5.0 x 2.2 x 1.7 cm. Homogeneous echotexture with normal vascularity. [2 subcentimeter nodules in the mid to upper pole, mixed solid and cystic, largest 7 x 7 x 5 mm, second nodule 5 x 4 x 3 mm. Largest nodule is TI RADS level 3 or mildly suspicious. LEFT THYROID LOBE: 5.0 x 1.7 x 1.3 cm. Homogeneous echotexture with normal vascularity. [Mixed solid and cystic nodule lower pole measures 8 x 7 x 5 mm, TI RADS level 2 or nonsuspicious. ISTHMUS: 3 mm. No thyroid nodules are present. US/Thyroid IMPRESSION: Bilateral subcentimeter nodules, largest nodule on the right is TI RADS level 3 but not large enough for fine-needle aspiration. Recommend follow-up in one, 3 and 5 years. Electronically Signed: Navin Tang MD at 17:53 EST ,
--- OUTSIDE RECORDS SUMMARY | 2023-03-23 18:42 | XMS RPT_ITS | CCD ---
Author Name Unknown Address [address] [place] [address] Organization [facility] [place] Care Team Providers Care Combiner Operator Name Role Phone Dossi Divine BLACKWOOD B Unavailable Charmaine Amor Unavailable Unavailable Dossi Divine BLACKWOOD B Unavailable Olive Jurado Unavailable Patricia Hopkins Unavailable Unavailable Raina Nelson Unavailable Unavailable Unavailable Unavailable Fast, Hoda A Unavailable Gravius, Gisell Unavailable Unavailable Adrien DO Olive Unavailable Fast DO, Hoda A Unavailable Patricia Hopkins LPN Unavailable Unavailable Gravcristiano YBARRA Gisell Unavailable Unavailable Sadi Clark LPN Unavailable Unavailable Unavailable Unavailable Chung MARQUES, Suzanne Angeles Unavailable Adrien DOAngelesOlive Unavailable Fast DO, Hoda A Unavailable Adrien Olive CRISOSTOMO Attending Unavailable Adrien DOOlive Consulting Unavailable Fast DO, Hoda A Referring Unavailable Olive Jurado DO Primary Care Provider Olive Jurado DO Primary Care Provider OLIVE JURADO Primary Care Unavailab OLIVE Oleary Primary Care Unavailab le OLIVE JURADO Primary Care Unavailab le ADRIENOLIVE HASKINS Primary Care Unavailab le NEDOFELIACHARLIE Referring Unavailable OLIVE JURADO Primary Care Unavailab le Medications Current Medications Medication Drug Class(es) Dates Sig (Normalized) Sig (Original) amoxicillin 875 mg oral tablet (1 source) Penicillin-class Antibacterial Start: 12-23-2021 End: 12-30-2021 take 1 tablet by mouth twice daily amoxicillin (AMOXIL) 875 mg tablet Take 1 tablet by mouth twice daily for 7 days. 14 tablet 0 12/23/2021 12/30/2021 Active Completed/Discontinued Medications Medication Drug Class(es) Dates Sig (Normalized) Sig (Original) acetaminophen 325 mg / HYDROcodone bitartrate 5 mg oral tablet (13 sources) Opioid Agonist Start: 09-20-2014 End: 03-18-2017 take 1 tablet by mouth every hour as needed [place] 5-325 MG Oral Tablet 1 (one) Tablet 1-2 q hrs prn for 10 days Refills: 0 Ordered: 18-Mar-2017 Raina Nelson RN Start : 20-Sep-2014 End : 18-Mar-2017 Inactive [id number] 200 actuat albuterol 0.09 mg/actuat metered dose inhaler (13 sources) beta2-Adrenergic Agonist Start: 03-18-2017 End: 12-08-2019 take 1 puff(s) by inhalation every four to six hours as needed ProAir HFA 108 (90 Base) MCG/ACT Inhalation Aerosol Solution 1 (one) Puff q 4-6 hrs prn for 0 days Quantity: 1 {Inhaler} Refills: 0 Ordered: 08-Dec-2019 Gisell Nicholson CMA Start : 18-Mar-2017 End : 08-Dec-2019 Inactive Problems Active Problems Problem Classification Problem Date Documented Date Episodic/Chronic Administrative/social admission (5 sources) Medical examinations/reports status; Translations: [Well female exam with routine gynecological exam] 03-18-2017 Episodic Anxiety disorders (20 sources) Anxiety; Translations: [Mixed anxiety and depressive disorder] 12-08-2019 Chronic Female infertility (4 sources) Female infertility associated with anovulation; Translations: [Female infertility associated with anovulation] Onset: 07-17-2008 07-17-2008 Chronic Fever of unknown origin (20 sources) Fever with chills; Translations: [Fever and chills] Onset: 07-01-2022 03-18-2017 Episodic Fluid and electrolyte disorders (20 sources) Hypernatremia; Translations: [Hypokalemia] Resolved: 09-24-2014 12-08-2019 Episodic Fracture of upper limb (1 source) Closed fracture of third metacarpal; Translations: [Unspecified fracture of third metacarpal bone, right hand, initial encounter for closed fracture] Onset: 04-12-2021 04-13-2021 Episodic Influenza (15 sources) Influenza due to Influenza virus, type B; Translations: [Influenza B] 03-18-2017 Episodic Malaise and fatigue (20 sources) Fatigue; Translations: [Fatigue] Resolved: 12-08-2021 03-18-2017 Episodic Mood disorders (20 sources) Mood disorders Nonmalignant breast conditions (15 sources) Pain of breast; Translations: [Breast pain] 03-18-2017 Episodic Nutritional deficiencies (12 sources) Undernutrition; Translations: [Malnourished] Resolved: 09-24-2014 12-08-2019 Chronic Past or Other Problems Problem Classification Problem Date Documented Da te Episodic/Chronic Influenza (11 sources) Influenza Nutritional deficiencies (5 sources) Nutritional disorder; Translations: [Malnourished] Resolved: 09-24-2014 12-08-2019 Episodic Results Test Name Value Interpretation Reference Range Facil ity Vital Signs Date Time Vital Sign Value Performing Clinician Facility 06-29-2022 12:04-0400 Body temperature 99.1 [degF] Ben Willard MD Work Phone: [facility] 06-29-2022 12:04-0400 Body weight 156.49 kg Ben Willard MD Work Phone: [facility] 06-29-2022 12:04-0400 Diastolic blood pressure 90 mm[Hg] Ben Willard MD Work Phone: [facility] 06-29-2022 12:04-0400 Heart rate 95 /min Ben Willard MD Work Phone: [facility] 06-29-2022 12:04-0400 Respiratory rate 21 /min Ben Willard MD Work Phone: [facility] 06-29-2022 12:04-0400 SaO2% (BldA) [Mass fraction] 98 % Ben Willard MD Work Phone: [facility] 06-29-2022 12:04-0400 Systolic blood pressure 130 mm[Hg] Ben Willard MD Work Phone: [facility] 02-05-2022 16:50-0500 Body temperature 100.2 [degF] Express [facility] Work Phone: [facility] 02-05-2022 16:50-0500 Body weight 155.86 kg [facility] Work Phone: [facility] 02-05-2022 16:50-0500 Diastolic blood pressure 78 mm[Hg] [facility] Work Phone: [facility] 02-05-2022 16:50-0500 Heart rate 85 /min [facility] Work Phone: [facility] 02-05-2022 16:50-0500 Respiratory rate 16 /min [facility] Work Phone: [facility] 02-05-2022 16:50-0500 SaO2% (BldA) [Mass fraction] 97 % [facility] Work Phone: [facility] 02-05-2022 16:50-0500 Systolic blood pressure 126 mm[Hg] [facility] Work Phone: [facility] 12-23-2021 19:50-0500 Body temperature 101.19 [degF] Amaris Parekh SUPERVISOR GLUING.PATIENT COORDINATOR Work Phone: [facility] 12-23-2021 19:50-0500 Body weight 160.03 kg Amaris Parekh SUPERVISOR GLUING.PATIENT COORDINATOR Work Phone: [facility] 12-23-2021 19:50-0500 Diastolic blood pressure 82 mm[Hg] Amaris Parekh SUPERVISOR GLUING.PATIENT COORDINATOR Work Phone: [facility] 12-23-2021 19:50-0500 Heart rate 86 /min Amaris Parekh SUPERVISOR GLUING.PATIENT COORDINATOR Work Phone: [facility] 12-23-2021 19:50-0500 Respiratory rate 18 /min Amaris Parekh SUPERVISOR GLUING.PATIENT COORDINATOR Work Phone: [facility] 12-23-2021 19:50-0500 SaO2% (BldA) [Mass fraction] 96 % Amaris Parekh SUPERVISOR GLUING.PATIENT COORDINATOR Work Phone: [facility] 12-23-2021 19:50-0500 Systolic blood pressure 118 mm[Hg] Amaris Parekh SUPERVISOR GLUING.PATIENT COORDINATOR Work Phone: [facility] 12-08-2021 14:49-0400 Body height 173.99 cm Gisell Nicholson [facility] Work Phone: 12-08-2021 14:49-0400 Body mass index (BMI) [Ratio] 52.91 kg/m2 Gisell Nicholson [facility] Work Phone: 12-08-2021 14:49-0400 Body surface area Derived from formula 2.62 m2 Gisell Nicholson [facility] Work Phone: 12-08-2021 14:49-0400 Body temperature 97.3 [degF] Gisell Nicholson [facility]; [facility] Work Phone: Encounters Encounter Date Encounter Type Care Provider Facility Start: 07-01-2022 End: 07-01-2022 ambulatory OLIVE JURADO Facility:[facility] Start: 06-29-2022 End: 06-29-2022 ambulatory OLIVE JURADO Facility:[facility] Start: 06-29-2022 End: 06-29-2022 Patient encounter procedure Ben Willard MD Work Phone: [facility] Procedures Date Procedure Procedure Detail Performing Clinician Start: 06-29-2022 STREP A MOLECULAR (POC) Ben Willard MD Work Phone: Start: 02-05-2022 COVID WITH FLUA+B, ROUTINE Alma Callow SUPERVISOR GLUING.PATIENT COORDINATOR Work Phone: Start: 02-05-2022 STREP A MOLECULAR (POC) [facility] Provider Start: 12-23-2021 COVID WITH FLUA+B, ROUTINE Amaris Parekh APRN.PATIENT COORDINATOR Work Phone: Start: 06-12-2021 End: 06-12-2021 Wireless Manager Office Visit Report Comments: See Note; NOTES: [facility] 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) Allergies No Known Allergies Allergy (Verified 06/12/21 10:31) Medications semaglutide 7 mg tablet 7 mg PO DAILY 08/07/19 [History Confirmed 06/12/21] citalopram 20 mg tablet tablet PO 12/27/20 [History Confirmed 06/12/21] Synthroid 75 mcg tablet 75 mcg PO DAILY #90 tab NS 02/18/21 [Rx Confirmed 06/12/21] Is last menstrual period known: Yes Last Menstral Period: 05/16/21 [facility] Medical History History of depression Muscle cramp Obesity Paresthesia PCOS (polycystic ovarian syndrome) PCOS (polycystic ovarian syndrome) Thyroid disorder Surgical History delivery delivered History of hand surgery Hx laparoscopic cholecystectomy Family History Unknown Heart disease Cancer ovarian Breast cancer Social History Smoking Status: Never smoker alcohol intake: current alcohol intake frequency: holidays/special occasions only substance use type: does not use caffeine: Yes what type of physical activity do you participate in: other details: crossfit frequency: 3-4 times per week seatbelt use: always do you feel safe at home: Yes additional social history: Single- Works at [employer] Pregancy History 2 Elective abortions Hx Para 2 Spontaneous abortions Hx # Term Pregnancies Ectopic pregnancies Hx # Pregnancies Multiple births # of living children Past Pregnancies Del. Date Name GA/Weeks Outcome Route Bth Weight Infant Gen Labor Lgth Anesthesia Del Locatn Provider FOB Unknown 2006 Gil Unknown 2009 Mikie HPI Encounter for routine gynecological examination Details: SADI BRYSON is a 41 year old who presents for annual exam. Denies concerns. No STD concerns. Last PAP: 2019 History of abnormal PAP: no Last mammogram: yesterday History of abnormal mammogram: no Colon cancer screening: age 50 Female Reproductive History Last Menstral Period: 05/16/21 ROS Const Constitutional: Denies fatigue, weight gain or weight loss Cardio Card: Denies chest pain Resp Resp: Denies cough or dyspnea on exertion GI GI: Denies abdominal pain, bloating, change in stool character, constipation or vomiting : Reports as per HPI; Denies difficulty voiding, pelvic pain, urinary frequency, urinary incontinence, urinary urgency, vaginal discharge or vaginal pruritus Exam Const General: cooperative, healthy appearing, no acute distress and well developed Orientation: alert, oriented to person and oriented to place HENID Head: normal to inspection Neck Neck: normal visual inspection Thyroid: thyroid normal Lymphatic: no lymphadenopathy noted Chest Breast inspection: normal inspection of the breasts and normal inspection of the axillae Breast palpation: normal palpation of the breasts, normal palpation of the axillae and no axillary lymphadenopathy Resp Effort Inspection: normal respiratory effort GI Palpation: soft, no masses and nontender Rectal Exam: deferred External Female Exam: normal external appearance and normal appearance of the urethra Urethra: normal appearance of the urethra and normal palpation Speculum Exam - Vagina: normal appearance of the vagina and normal vaginal discharge Speculum Exam - Cervix: normal appearance of the cervix Bimanual Exam- Vagina Uterus: normal bimanual exam, uterine size normal, uterine shape normal and non-tender Bimanual Exam- Adnexa, other: normal adnexae, no masses, normal and non-tender Pelvic Support: normal Neuro General: patient alert and patient oriented x3 Psych Affect: normal affect Coding Level of Care Code Off vis,est,prev 40-64yrs Diagnoses Encounter for routine gynecological examination Z01.419 PCOS (polycystic ovarian syndrome) E28.2 Menorrhagia with irregular cycle N92.1 Assessment and Plan Assessment and Plan (1) Encounter for routine gynecological examination: (2) PCOS (polycystic ovarian syndrome): Status: Acute Comment: no problematic (3) Menorrhagia with irregular cycle: Status: Acute Comment: 11cm uterus, nl EMB/CBC/TSH. declines ocp due to past side effects. discussed options of IUD vs Lysteda vs surgery. plan Lysteda trial and reevaluate in several months. discussed hyst if refractory to therapy. controlled at this time Plan - Cara Yu WATCH REPAIR TECHNICIAN, WATCH REPAIR TECHNICIAN-C: Completed breast and pelvic exam Reviewed diet and exercise Pap 2019 Mammogram 06/11/21 breast self exam encouraged RTO 1 year, prn with problems Cara Yu PATIENT COORDINATOR Plan Details Other Orders: Orders: SCRN MAMM (CAD)W/VICKIE BILAT 06/11/21 Goals Barriers: Goals Decrease pain and spasm Barriers Obesity 06/12/21 1121 <Electronically signed by Cara Yu NP WATCH REPAIR TECHNICIAN-C> Date Cara Yu NP WATCH REPAIR TECHNICIAN-C Cosigner Signature: Date (if applicable) CC: Olive Jurado DO Work Phone: Start: 06-12-2021 End: 06-12-2021 Endocrinology Visit Report Comments: See Note; NOTES: [facility] [address] [place] [address]. [address] [place], [place] [address] OFFICE VISIT Date of Service: 06/12/21 MR#: [id number] Acct: [id number] Name: SADI BRYSON Rep #: [id number] : 1980 Provider: Hannah Zhong Age/Sex: 41/F Location: [facility] [place] Status: Signed Intake Vital Signs 06/12/21 09:14 Height 5 ft 8 in Weight: 340 lb BMI 51.7 BP 110/80 Blood Pressure Location Lt brachial Position Sitting Respiration 18 Pulse 71 Pulse Source Monitor Temp 96.2 F L Temp Source Temporal Pulse Oximetry (%) 95 Oxygen Delivery Method room air Intake Visit Reasons: 6 M FU Chief Complaint: PCOS Health Information Systems Technician Required: No Accompanied by: self Is patient in pain?: No Allergies No Known Allergies Allergy (Verified 06/12/21 10:31) [facility] Medical History History of depression Muscle cramp Obesity Paresthesia PCOS (polycystic ovarian syndrome) PCOS (polycystic ovarian syndrome) Thyroid disorder Surgical History delivery delivered History of hand surgery Hx laparoscopic cholecystectomy Family History Unknown Heart disease Cancer ovarian Breast cancer Social History Smoking Status: Never smoker alcohol intake: current alcohol intake frequency: holidays/special occasions only substance use type: does not use caffeine: Yes what type of physical activity do you participate in: other details: crossfit frequency: 3-4 times per week seatbelt use: always do you feel safe at home: Yes additional social history: Single- Works at [employer] Chief Complaint: PCOS Details: SADI BRYSON, is a 41 F who presents to the office today for follow up. She is taking Rybelsus 7 mg. She is having constipation. She is frustrated about her weight. She feels she is eating 1,000 calories per day for the last 3 months. She did lose 6 pounds. Exam Const General: cooperative, healthy appearing, comfortable, no acute distress, well developed and not cushingoid Nutritional Appearance: well nourished Orientation: alert, awake and oriented x3 HENMT Head: normal to inspection Ears: hearing grossly normal bilaterally Nose: external nose normal Mouth: oral mucosae normal Eyes General: appearance normal, both eyes and all related structures Alignment and Position: alignment normal Periorbital: periorbital findings normal Eyelids: eyelids normal Conjunctivae: conjunctivae normal Neck Neck: normal visual inspection Neck mass: No Lymphatic: no lymphadenopathy noted Chest Chest palpation inspection: normal inspection of the chest Resp Effort Inspection: normal respiratory effort, able to speak in complete sentences, symmetric chest movement, no audible wheezes and no cough Auscultation: Bilateral: Clear to Auscultation Cardio Rate: regular rate Rhythm: regular rhythm Pulses: posterior tibial pulses present GI Inspection: normal to inspection Palpation: soft Skin General: no rashes or lesions noted Neuro General: patient alert, patient awake and patient oriented x3 Cranial Nerves: CN's II-XI intact bilaterally Cognition: normal cognition Speech: speech normal Gait: normal gait Motor: muscle tone normal throughout Extrem General: no edema Psych Appearance: grossly normal Mental Status: mental status grossly normal Mood: congruent mood Affect: normal affect Speech and Movement: speech and movement normal Attitude: cooperative Thought Process: normal Thought Content: normal Judgment: judgment good Coding Level of Care Code Off vis,est,level 4 Diagnoses PCOS (polycystic ovarian syndrome) E28.2 Obesity E66.01; Z68.43 Obesity type: due to excess calories Obesity classification: adult class 3 (BMI >= 40) Serious obesity comorbidity presence: with serious comorbidity Body mass index: BMI 50.0-59.9 Assessment and Plan Assessment and Plan (1) PCOS (polycystic ovarian syndrome): Status: Acute Comment: no problematic (2) Obesity: Status: Acute Qualifiers: Obesity type: due to excess calories Obesity classification: adult class 3 (BMI >= 40) Serious obesity comorbidity presence: with serious comorbidity Body mass index: BMI 50.0-59.9 Qualified Code(s): E66.01 - Morbid (severe) obesity due to excess calories; Z68.43 - Body mass index [BMI] 50.0-59.9, adult Plan - Dr. Moises Bean MD: Stop Rybelsus for now to see if she feels better off of the medication. I counseled her extensively regarding her diet. I explained that she is eating more than 1,000 calories per day. But, if she is convinced, reduce to 600 calories per day. Support given. I have spent [30] minutes today reviewing labs, records and history. Time includes coordinating care, interpretation of tests, discussion with patient's other health care providers via telephone. This also includes time I spent with the patient for exam, treatment plan and education as well as documenting clinical information. Plan Details Goals Barriers: Goals Decrease pain and spasm Barriers Obesity 06/12/21 1211 <Electronically signed by Moises Bean MD> Date Moises Bean MD Cosigner Signature: Date (if applicable) CC: Dr. Olive Jurado, DO Olive Jurado DO Work Phone: Start: 06-11-2021 End: 06-11-2021 SCRN MAMM (CAD)W/VICKIE BILAT Comments: See Note; NOTES: [facility] Services [address] [place] [address] SCRN MAMM (CAD)W/VICKIE BILAT MR#: [id number] Acct: [id number] Name: SADI BRYSON Rep #: [id number] : 1980 F 41 From: Elder manning MD PCP: Dr. Olive Jurado, DO Status: REG CLI Study: SCRN MAMM (CAD)W/VICKIE BILAT Date of Exam: 05/17 09/05 Exam# [id number] Ordering Dr: Cara Yu WATCH REPAIR TECHNICIAN WATCH REPAIR TECHNICIAN -C MAMMOGRAPHY - BILATERAL SCREENING REASON FOR EXAM: Female, 41 years old. Routine annual screening examination. PERTINENT HISTORY: Grandmother with breast cancer. TECHNIQUE: Digital bilateral breast vickie (3D mammographic acquisition) in the CC and MLO projections. 2-D mediolateral oblique (MLO) and craniocaudad (CC) views of both breasts were obtained. CAD: Full Field Digital Mammography with Computer Added Detection was performed. COMPARISON: Comparison is made with prior study dated 08/24/2019 and 05/07/2018. FINDINGS: Breast Composition: The breasts are almost entirely fatty. There are no dominant masses or suspicious calcifications. Stable small benign-appearing bilateral axillary lymph nodes. No other significant abnormalities are identified. There has been no significant change since the prior study. BI/SCRN MAMM (CAD)W/VICKIE BILAT IMPRESSION: Stable bilateral screening mammogram. Yearly follow-up mammogram recommended. (A) ASSESSMENT CATEGORY: BIRADS Category 2: Benign. A letter regarding these results will be sent to the patient by the facility within 30 days. Approximately 10% of breast cancers are not detected by mammography. A normal mammogram should not delay biopsy of a clinically suspicious abnormality. [id number] Electronically Signed: Elder Alarcon MD at 8:52 EDT , CC: RANJITH Yu; Dr. Olive Jurado DO Adviser Sales: Signed Olive Jurado DO Work Phone: Start: 05-27-2021 End: 05-27-2021 BP scrn no perf at interval Suzanne Farrisg PA-C Work Phone: Start: 05-27-2021 End: 05-27-2021 Calc BMI out nrm javi nof/u Suzanne Lanzatrong PA-C Work Phone: Start: 05-27-2021 End: 05-27-2021 Current tobacco non-user cad cap copd pv dm Suzanne Farrisg PA-C Work Phone: Start: 05-27-2021 End: 05-27-2021 Docrev cur meds by ivan Farrisg PA-C Work Phone: Start: 05-27-2021 End: 05-27-2021 Pain doc pos and plan Suzanne Wilkes PA-C Work Phone: Start: 05-27-2021 End: 05-27-2021 Patient encounter procedure Suzanne Wilkes PA-C Work Phone: Start: 12-27-2020 End: 12-30-2020 Endocrinology Visit Report Comments: See Note; NOTES: [facility] [address] [place] [address] OFFICE VISIT Date of Service: 12/27/20 MR#: [id number] Acct: [id number] Name: SADI BRYSON Rep #: [id number] : 1980 Provider: Hannah Zhong Age/Sex: 40/F Location: [facility] [place] Status: Signed Intake Vital Signs 07/17/20 09:35 12/27/20 08:30 12/27/20 08:35 Height 5 ft 8 in Weight: 346 lb 2 oz BMI 50.2 52.6 50.2 BP 128/80 H Blood Pressure Location Lt brachial Position Sitting Respiration 16 Pulse 73 Pulse Source Monitor Temp 97.0 F L Temp Source Temporal Pulse Oximetry (%) 98 Oxygen Delivery Method room air Intake Visit Reasons: WATCH REPAIR TECHNICIAN-PCOS-NPP MAILED Chief Complaint: PCOS Health Information Systems Technician Required: No Accompanied by: self Is patient in pain?: No Allergies No Known Allergies Allergy (Verified 12/27/20 08:34) PFSH Medical History (Updated 12/30/20 @ 12:[address] Moises Bean MD) History of depression Muscle cramp Obesity Paresthesia PCOS (polycystic ovarian syndrome) PCOS (polycystic ovarian syndrome) Thyroid disorder Surgical History delivery delivered Hx laparoscopic cholecystectomy Family History Unknown Heart disease Cancer ovarian Breast cancer Social History Smoking Status: Never smoker alcohol intake: current alcohol intake frequency: holidays/special occasions only substance use type: does not use caffeine: Yes what type of physical activity do you participate in: other details: crossfit frequency: 3-4 times per week seatbelt use: always do you feel safe at home: Yes additional social history: Single- Works at [employer] Chief Complaint: PCOS Details: SADI BRYSON, is a 40 F who presents to the office today for evaluation and management of PCOS. Menarche age 15, menses irregular and heavy. Now she has 6 menses per year, light. FMH is positive for diabetes in maternal side of family She had 2 sons that weighed 8 lb 13 oz and 10 lb 9 oz, she was not diagnosed with GDM. She is taking Rybelsus 7 mg. She reports high levels of stress in her life. She has been unable to lose weight. Exam Const General: cooperative, healthy appearing, comfortable, no acute distress, well developed and not cushingoid Nutritional Appearance: well nourished Orientation: alert, awake and oriented x3 HENMT Head: normal to inspection Ears: hearing grossly normal bilaterally Nose: external nose normal Mouth: oral mucosae normal Eyes General: appearance normal, both eyes and all related structures Alignment and Position: alignment normal Periorbital: periorbital findings normal Eyelids: eyelids normal Conjunctivae: conjunctivae normal Neck Neck: normal visual inspection Neck mass: No Thyroid: thyroid normal Carotids: no bruits Lymphatic: no lymphadenopathy noted Chest Chest palpation inspection: normal inspection of the chest Resp Effort Inspection: normal respiratory effort, able to speak in complete sentences, symmetric chest movement, no audible wheezes and no cough Auscultation: Bilateral: Clear to Auscultation Cardio Rate: regular rate Rhythm: regular rhythm Pulses: posterior tibial pulses present GI Inspection: normal to inspection Auscultation: normal bowel sounds Palpation: soft and no hepatosplenomegaly Skin General: no rashes or lesions noted Neuro General: patient alert, patient awake and patient oriented x3 Cranial Nerves: CN's II-XI intact bilaterally Cognition: normal cognition Speech: speech normal Gait: normal gait Motor: muscle tone normal throughout Extrem General: no edema Psych Appearance: grossly normal Mental Status: mental status grossly normal Mood: congruent mood Affect: normal affect Speech and Movement: speech and movement normal Attitude: cooperative Thought Process: normal Thought Content: normal Judgment: judgment good Coding Level of Care Code Off vis,new,level 5 Diagnoses PCOS (polycystic ovarian syndrome) E28.2 Muscle cramp R25.2 Obesity E66.01; Z68.43 Obesity type: due to excess calories Obesity classification: adult class 3 (BMI >= 40) Serious obesity comorbidity presence: with serious comorbidity Body mass index: BMI 50.0-59.9 Paresthesia R20.2 Assessment and Plan Assessment and Plan (1) PCOS (polycystic ovarian syndrome): Status: Acute (2) Muscle cramp: Status: Acute (3) Obesity: Status: Acute Qualifiers: Obesity type: due to excess calories Obesity classification: adult class 3 (BMI >= 40) Serious obesity comorbidity presence: with serious comorbidity Body mass index: BMI 50.0-59.9 Qualified Code(s): E66.01 - Morbid (severe) obesity due to excess calories; Z68.43 - Body mass index [BMI] 50.0-59.9, adult (4) Paresthesia: Status: Acute Orders: Orders: Vitamin D,25 Hydroxy 12/27/20 E28.2, R25.2, R20.2 Vitamin B12 12/27/20 E28.2, R25.2, R20.2 Comprehensive Metabolic Profil 12/27/20 E28.2, R25.2, R20.2 Ferritin 12/27/20 E28.2, R25.2, R20.2 Lipid Profile 12/27/20 E28.2, R25.2, R20.2 T4 Free Direct 12/27/20 E28.2, R25.2, R20.2 Thyroid Stim Hormone (TSH) 12/27/20 E28.2, R25.2, R20.2 CBC W/Diff, Automated 12/27/20 E28.2, R25.2, R20.2 Plan - Dr. Moises Bean MD: I counseled her extensively regarding metabolic disease. Check labs. Plate method dietary sheet given to the patient and explained in detail. Match all insulin requiring foods with a non-insulin requiring food. Also, choose high fiber, low glycemic index carbohydrates. I suggested reading Bright Line Eating by Katherine Schaeffer for information regarding food choices with low glycemic index and for weight loss. I have spent [62] minutes today reviewing labs, records and history. Time includes coordinating care, interpretation of tests, discussion with patient's other health care providers via telephone. This also includes time I spent with the patient for exam, treatment plan and education as well as documenting clinical information. Plan Details Other Orders: Orders: Vitamin D,25 Hydroxy 12/27/20 E55.9 Goals Barriers: Goals Decrease pain and spasm Barriers Obesity 12/30/20 1230 <Electronically signed by Moises Bean MD> Date Moises Bean MD Cosigner Signature: Date (if applicable) CC: DO Olive Wang DO Work Phone: Start: 07-18-2020 End: 07-18-2020 Emergency Department Summary Comments: See Note; NOTES: [facility] Medical Records Department [address] [place] [address] Emergency Department Summary 07/18/20 MR#: [id number] Acct: [id number] Name: SADI BRYSON Rep #: [id number] : 1980 40 From: Ankit Berry DO PCP: Dr. Olive Jurado DO Status:DEP ER Location: ED HPI History of Present Illness Chief Complaint: Numb/Ting Informant: patient Narrative Narrative: 40-year-old female presents with 3 weeks of right arm paresthesias. She describes as a tingling sensation. She states now it is involving both hands and her feet. She notes at times she feels like she is going to have muscle spasms in her legs. 2 weeks ago she went to the dentist and had a normal checkup and now she is experiencing some pain on the right lower teeth. She denies any headache or vision changes. No speech difficulty or muscle weakness. She went to a chiropractor who recommended she see her doctor. She called her doctor's office today and they recommended she come to emergency. [facility] Medical History (Updated 07/18/20 @ 10:[address] Ankit Berry DO) History of depression PCOS (polycystic ovarian syndrome) Thyroid disorder Home Medications levothyroxine 75 mcg tablet 75 mcg PO DAILY 04/04/18 [History Last Taken Unknown] metformin 1,000 mg tablet 500 mg PO BID tab 08/07/19 [History Last Taken Unknown] semaglutide 7 mg tablet 7 mg PO DAILY 08/07/19 [History Last Taken Unknown] Allergy/AdvReac Type Severity Reaction Status Date / Time No Known Allergies Allergy Verified 07/18/20 09:07 Family History Unknown Heart disease Cancer ovarian Breast cancer Surgical History delivery delivered Hx laparoscopic cholecystectomy Social History Smoking Status: Never smoker alcohol intake: current alcohol intake frequency: holidays/special occasions only substance use type: does not use caffeine: Yes what type of physical activity do you participate in: other details: crossfit frequency: 3-4 times per week seatbelt use: always do you feel safe at home: Yes additional social history: Single- Works at [employer] Constitutional Constitutional ED: Denies chills or weight loss Eyes Eyes: Denies change in vision or diplopia ENT ENT ED: Reports other Details: Dental pain ; Denies ear pain, rhinorrhea or sore throat Cardiovascular Cardiovascular: Denies chest pain, orthopnea, palpitations or racing heartbeat Respiratory/Chest Respiratory/Chest: Denies cough, dyspnea or orthopnea Gastrointestinal Gastrointestinal: Denies abdominal pain, diarrhea, nausea or vomiting Genitourinary Genitourinary ED: Denies dysuria, hematuria or urinary frequency Musculoskeletal Musculoskeletal: Denies arthralgias or myalgias Integumentary Denies abscess or rash Neurologic Neurologic: Reports paresthesias; Denies headache(s) or weakness Psychiatric Psychiatric: Denies anxiety, depression, suicidal ideation or suicidal thoughts Endocrine Endocrinology: Denies polydipsia, polyphagia or polyuria Allergic/Immunologic Allergic/Immunologic ED: Denies mouth swelling, tongue swelling or urticaria EXAM Physical Exam Const Vital Signs: 07/18/20 09:05 Temperature 98.2 F Temperature Source Temporal Pulse Rate 63 Respiratory Rate 15 Blood Pressure 156/89 H Blood Pressure Mean 111 Pulse Ox 97 Oxygen Delivery Method Room Air Positive well nourished and well developed General Appearance ED: well developed HEENT Reports normocephalic, head/scalp atraumatic and moist mucous membranes Eyes PERRL and EOMs intact bilaterally Neck no lymphadenopathy, supple and no JVD Resp normal respiratory effort and clear to auscultation bilaterally Cardio regular rate, regular rhythm and no murmurs GI normal to inspection, nondistended, normoactive bowel sounds and non-tender Palpation: soft Back/Spine no CVA tenderness and normal ROM Extremity normal to inspection General Extremety ED: Negative for edema General Extremity: Negative for edema Neuro oriented x3 and CN's II-XII intact bilaterally Sensorium / Orientation: alert Motor Exam: strength 5/5 throughout Psych mental status grossly normal Mood Affect: Negative for depressed or tearful Skin no rashes or lesions noted and no wounds MDM MDM MDM Narrative Medical decision making narrative: Basic blood work was normal. Patient had a history of hypocalcemia therefore electrolytes were checked and were negative. Glucose 124. CT the brain demonstrates no mass or subacute/acute stroke. Patient was advised on follow-up. Return if worsening or concerns Lab Data Labs: Laboratory Results - last 24 hr 07/18/20 07/18/20 08:25 08:25 WBC 4.2 L RBC 5.00 Hgb 14.1 Hct 43.8 MCV 87.6 MCH 28.2 MCHC 32.2 RDW Std Deviation 41.7 RDW Coeff of Karishma 13.2 Plt Count 208 MPV 9.7 Immature Gran % (Auto) 0.500 Neut % (Auto) 44.2 L Lymph % (Auto) 44.4 H Nuckolls % (Auto) 6.9 Eos % (Auto) 3.8 Baso % (Auto) 0.2 Absolute Neuts (auto) 1.9 L Absolute Lymphs (auto) 1.88 Nucleated RBC % 0 Sodium 141 Potassium 3.7 Chloride 104 Carbon Dioxide 28.0 Anion Gap 9 BUN 12 Creatinine 0.76 Estim Creat Clear Calc 99.26 Est GFR (MDRD) Af Amer 108 Est GFR (MDRD) Non-Af 89 BUN/Creatinine Ratio 15.7 Glucose 124 H Calcium 8.6 Magnesium 1.8 Total Bilirubin 0.60 AST 23 ALT 37 Alkaline Phosphatase 62 Total Protein 7.3 Albumin 3.6 Globulin 3.7 Albumin/Globulin Ratio 1.0 Radiography Diagnostic Testing: Radiology Impression Brain CT 07/18/20 09:14 IMPRESSION: Normal unenhanced CT scan of the brain. Electronically Signed: Elder Alarcon MD at 10:10 EDT , Service support , Discharge Plan Triage Chief Complaint: Numb/Ting ED Provider: Ankit Berry Dx/Rx/DC Orders Clinical Impression: Paresthesias Instructions: ED Paraesthesias Prescriptions: No Action levothyroxine 75 mcg tablet 75 mcg PO DAILY RF: 0 metformin 1,000 mg tablet 500 mg PO BID RF: 0 Rybelsus 7 mg tablet 7 mg PO DAILY RF: 0 Primary Care Provider: Olive Jurado Referrals: Olive Jurado DO [Primary Care Provider] - 1 Week Disposition Disposition: Home, self care What to do if you have Problems For any increased pain, shortness of breath, bleeding, nausea or vomiting, chest pain, or any unexpected problems, contact your Primary Care Provider. Call [facility] ([phone]) or report to the closest Emergency Room. Call 911 if necessary. 07/18/20 1634 <Electronically signed by Ankit Berry DO> Cosigner Signature (if applicable): CC: Dr. Olive Jurado DO Signed Olive Jurado DO Work Phone: Start: 07-18-2020 End: 07-18-2020 Brain/Head without Contrast Comments: See Note; NOTES: [facility] Imaging Services [address] [place] [address] Brain/Head without Contrast MR#: [id number] Acct: [id number] Name: SADI BRYSON Rep #: [id number] : 1980 F 40 From: Elder manning MD PCP: Dr. Olive Jurado DO Status: REG ER Study: Brain/Head without Contrast Date of Exam: 05/05 Exam# [id number] Ordering Dr: Ankit Berry DO STUDY: CT BRAIN WITHOUT CONTRAST REASON FOR EXAM: Female, 40 years old. Paresthesias. Right arm numbness. RADIATION DOSAGE (If Supplied By Facility): CTDIvol = ( 44.99 ) mGy, DLP = ( 796.11 ) mGycm TECHNIQUE: Transaxial CT imaging of the brain was performed without administration of intravenous contrast material. Individualized dose optimization techniques were used for this CT. COMPARISON: No relevant priors. FINDINGS: Normal soft tissue structures. Normal calvarium. Normal size ventricles and extra-axial spaces for the patient''s age. Normal white matter tracts of the cerebral hemispheres. Normal basal ganglia and thalami. Normal brainstem. Normal cerebellum. There is no intracranial hemorrhage. There are no findings of an acute ischemic infarction. Normal visualized paranasal sinuses. CT/Brain/Head without Contrast IMPRESSION: Normal unenhanced CT scan of the brain. Electronically Signed: Elder Alarcon MD at 10:10 EDT , Service support , CC: Dr. Ankit Berry DO; Dr. Olive Jurado DO Adviser Sales: Signed Olive Jurado DO Work Phone: Start: 01-26-2020 End: 01-27-2020 Neck for Soft Tissue Comments: See Note; NOTES: [facility] Imaging Services [address] [place] [address] Neck for Soft Tissue MR#: [id number] Acct: [id number] Name: SADI BRYSON Rep #: [id number] : 1980 F 39 From: Fran Fountain MD PCP: Dr. Olive Jurado DO Status: REG CLI Study: Neck for Soft Tissue Date of Exam: 01/26/20 Exam# [id number] Ordering Dr: Raoul Hall MD STUDY: X-RAY - SOFT TISSUE NECK REASON FOR EXAM: Female, 39 years old. GOITER TECHNIQUE: 2 view(s) of the neck were obtained. COMPARISON: None. FINDINGS: Normal visualized nasopharynx, oropharynx, hypopharynx. Normal epiglottis. Normal visualized subglottic tracheal air column. Normal prevertebral soft tissue structures. Normal visualized osseous structures. The soft tissue structures are unremarkable. RAD/Neck for Soft Tissue IMPRESSION: Normal x-ray soft tissue neck. Electronically Signed: Fran Fountain MD at 8:47 EST Tel , Service support , CC: Dr. Olive Jurado DO; Dr. Raoul Hlal MD Adviser Sales: Signed Olive Jurado DO Work Phone: Start: 09-13-2019 End: 09-17-2019 Wireless Manager Office Visit Report Comments: See Note; NOTES: [facility] Women[facility] [address] [place], [place] [id number] OFFICE VISIT Date of Service: 09/13/19 MR#: [id number] Acct: [id number] Name: SADI BRYSON Rep #: [id number] : 1980 Provider: Dr. Chantal cunningham MD Age/Sex: 39/F Location: [facility] Status: Signed Intake Vital Signs 09/13/19 Height 5 ft 8 in 09/13/19 Weight: 330 lb 8 oz 09/13/19 BP 136/92 H 09/13/19 BMI 51.0 Intake Visit Reasons: Consult Health Information Systems Technician Required: No Is patient in pain?: No Allergies No Known Allergies Allergy (Verified 09/13/19 10:29) Medications levothyroxine 75 mcg tablet 75 mcg PO DAILY 04/04/18 [History Confirmed 09/13/19] metformin 1,000 mg tablet 500 mg PO BID tab 08/07/19 [History Confirmed 09/13/19] semaglutide 7 mg tablet 7 mg PO DAILY 08/07/19 [History Confirmed 09/13/19] Post menopausal: No Patient : No : No PFSH Medical History History of depression (Acute) PCOS (polycystic ovarian syndrome) (Acute) Thyroid disorder (Acute) Surgical History delivery delivered (Acute) Hx laparoscopic cholecystectomy (Acute) Family History Unknown Heart disease Cancer ovarian Breast cancer Social History (Updated 09/17/19 @ 06:[address] Chantal Burns MD) Smoking Status: Never smoker alcohol intake: current alcohol intake frequency: holidays/special occasions only substance use type: does not use caffeine: Yes what type of physical activity do you participate in: other details: crossfit frequency: 3-4 times per week seatbelt use: always do you feel safe at home: Yes additional social history: Single- Works at [employer] Consult: Details: SADI BRYSON is a 39 year old who presents for AUB with heavy, irregular cycles. She has taken OCPs in the past and didn't tolerate them well. She is wanting to try other medical management prior to proceeding with surgical management. Pregancy History 2 Elective abortions Hx Para 2 Spontaneous abortions Hx # Term Pregnancies Ectopic pregnancies Hx # Pregnancies Multiple births # of living children Past Pregnancies Del. Date Name GA/Weeks Outcome Route Bth Weight Infant Gen Labor Lgth Anesthesia Del Locatn Provider FOB Unknown 2006 Gil Unknown 2009 Mikie AGUDELO Const Constitutional: Denies fatigue, fever(s), headache(s), increased appetite, poor appetite, weight gain or weight loss GI GI: Reports as per HPI; denies abdominal pain, constipation, nausea or vomiting : Reports as per HPI; denies difficulty urinating, painful urination, blood in urine, nipple discharge, pelvic pain, urinary frequency, urinary incontinence, urinary hesitancy, urinary urgency, vaginal discharge, vaginal dryness, vaginal odor, vaginal itching or other Skin Skin/Breast: Denies hair loss, change in hair, dry skin, breast lump, breast pain, breast skin changes or nipple discharge Exam Const General: cooperative, healthy appearing, comfortable, no acute distress, well developed Orientation: alert HENMT Head: normal to inspection, normocephalic Ears: hearing grossly normal bilaterally, external ears normal Nose: external nose normal, nares normal Face and sinus: normal facial exam Neck Neck: normal visual inspection, no lymphadenopathy, trachea midline Thyroid: thyroid normal Resp Effort Inspection: normal respiratory effort Musc Other: gross motor intact no deficits, full bilateral strength Skin General: no rashes or lesions noted Neuro Motor: muscle tone normal throughout Assessment Plan Problems 1. Menorrhagia with irregular cycle N92.1 11cm uterus, nl EMB/CBC/TSH. declines ocp due to past side effects. discussed options of IUD vs Lysteda vs surgery. plan Lysteda trial and reevaluate in several months. discussed hyst if refractory to therapy. Plan Problem list updated and treatment plans were reviewed with the patient and relevant educational handouts given. See problem list details for specific plan information. Orders Orders: CBC W/Diff, Automated 09/13/19 N92.1 Plan Detail Goals Decrease pain and spasm Barriers Obesity Coding Level of Care Code Off vis,est,level 4 Diagnoses Menorrhagia with irregular cycle N92.1 09/17/19 0602 <Electronically signed by Chantal Burns MD> Date Chantal Burns MD Cosigner Signature: Date (if applicable) CC: Olive Jurado Start: 08-30-2019 End: 08-30-2019 Wireless Manager Office Visit Report Comments: See Note; NOTES: [facility] Care [address] [place] [address] [address] [place] [address] OFFICE VISIT Date of Service: 08/30/19 MR#: [id number] Acct: [id number] Name: SADI BRYSON Rep #: [id number] : 1980 Provider: RANJITH cardenas Age/Sex: 39/F Location: [facility] Status: Signed Intake Vital Signs 08/30/19 Height 5 ft 8 in 08/30/19 Weight: 335 lb 8 oz 08/30/19 BMI 51.0 08/30/19 BP 123/85 H Intake Visit Reasons: EMB Health Information Systems Technician Required: No Accompanied by: Self Allergies No Known Allergies Allergy (Verified 08/30/19 15:35) Medications levothyroxine 75 mcg tablet 75 mcg PO DAILY 04/04/18 [History Confirmed 08/30/19] metformin 1,000 mg tablet 500 mg PO BID tab 08/07/19 [History Confirmed 08/30/19] semaglutide 7 mg tablet 7 mg PO DAILY 08/07/19 [History Confirmed 08/30/19] Is last menstrual period known: Yes Last Menstral Period: 08/13/19 Post menopausal: No Patient : No : No PFSH PFSH Medical History History of depression (Acute) PCOS (polycystic ovarian syndrome) (Acute) Thyroid disorder (Acute) Surgical History delivery delivered (Acute) Hx laparoscopic cholecystectomy (Acute) Family History Unknown Heart disease Cancer ovarian Breast cancer Social History (Updated 08/30/19 @ 15:58 by RANJITH Mcnamara) Smoking Status: Never smoker alcohol intake: current alcohol intake frequency: holidays/special occasions only substance use type: does not use caffeine: Yes what type of physical activity do you participate in: other details: crossfit frequency: 3-4 times per week seatbelt use: always do you feel safe at home: Yes additional social history: Single- Works at [employer] Pregancy History 2 Elective abortions Hx Para 2 Spontaneous abortions Hx # Term Pregnancies Ectopic pregnancies Hx # Pregnancies Multiple births # of living children Past Pregnancies Del. Date Name GA/Weeks Outcome Route Bth Weight Infant Gen Labor Lgth Anesthesia Del Locatn Provider FOB Unknown 2006 Gil Unknown 2009 Mikie [employer] EMB: Details: SADI BRYSON is a 39 year old who presents for endometrial biopsy due to menorrhagia, thickened endometrial lining Female Reproductive History Last Menstral Period: 08/13/19 ROS Const Constitutional: Reports as per HPI : Reports as per HPI Exam Const General: cooperative, no acute distress Nutritional Appearance: obese Orientation: oriented x3 External Female Exam: normal external appearance Speculum Exam - Vagina: normal appearance of the vagina Speculum Exam - Cervix: normal appearance of the cervix Office Procedures Endometrial Biopsy Endometrial Biopsy Test: Yes Negative Consent Signed: Yes Time out checklist: patient, procedure, site marked/identified, positioning of patient, supplies available, allergies confirmed, team agrees on procedure Time out time: 15:56 tenaculum used: Yes dilator used: Yes Details: Cervix prepped with betadine and pipelle inserted into uterus 7cm without complication but was difficult to place. Specimen obtained and sent to lab for analysis. All instruments removed from vagina without complications. Excellent hemostasis noted. Results POC Urine Office , Urine Negative Last Edit by Vandana Delgadillo on 08/30/19 15:44 Assessment Plan Problems 1. Endometrial thickening on ultrasound R93.89 2. Menorrhagia with irregular cycle N92.1 Plan Endometrial biopsy-call path results Reviewed S S infection. Discussed cyclic provera vs IUD. She would also consider hysterectomy. IUD may be difficult to place. Orders Orders: Endometrial Biopsy Today POC Urine Today N91.2 Plan Detail Goals Decrease pain and spasm Barriers Obesity Coding Level of Care Code No Charge Diagnoses Endometrial thickening on ultrasound R93.89 Menorrhagia with irregular cycle N92.1 Additional Codes Endometrial Biopsy (89205) 08/30/19 1558 <Electronically signed by Cara KASPER> Date Cara KASPER Cosigner Signature: Date (if applicable) CC: Olive Jurado Start: 08-24-2019 End: 08-24-2019 Pelvic (Non ) Comments: See Note; NOTES: [facility] Imaging Services [address] [place] [address] Pelvic (Non ) MR#: [id number] Acct: [id number] Name: SADI BRYSON Rep #: [id number] : 1980 F 39 From: Elder manning MD PCP: Dr. Olive Jurado, DO Status: REG CLI Study: Pelvic (Non ) Date of Exam: 08/24/19 Exam# [id number] Ordering Dr: Cara Yu WATCH REPAIR TECHNICIAN-C STUDY: ULTRASOUND OF THE FEMALE PELVIS - COMPLETE REASON FOR EXAM: Female, 39 years old. Irregular menses LMP: August 14, 2019. TECHNIQUE: Transabdominal and Transvaginal TECHNICAL QUALITY: Adequate. COMPARISON: None. FINDINGS: The uterus is anteverted and is in a midline position. The uterus is enlarged and measures 12.2 cm x 8.4 cm x 5.8 cm. There is a Nabothian cyst of the cervix. The endometrium is thickened and measures 33 mm in thickness, and is hyperechoic. There is no demonstrated endometrial mass. There is no demonstrated myometrial mass. I.U.D. - The patient does not have an I.U.D. The right ovary is visualized. The right ovary measures 2.7 cm x 1.9 cm x 2.8 cm. There is no right ovarian cyst or ovarian mass. There is no visualized right adnexal mass or complex lesion. There is normal arterial and normal venous vascularity. The left ovary is visualized. The left ovary measures 2.6 cm x 2.3 cm x 2.6 cm. There is no left ovarian cyst or ovarian mass. There is no visualized left adnexal mass or complex lesion. There is normal arterial and normal venous vascularity. There is no fluid in the cul-de-sac. The pre void volume of the bladder was 20 ml. Polycystic ovary disease: No. US/Pelvic (Non ) IMPRESSION: Enlarged uterus with a thickened endometrium. Electronically Signed: Elder Alarcon, at 15:33 EDT , Service support , CC: RANJITH Yu; Dr. Olive Jurado DO Adviser Sales: Signed Olive Jurado Work Phone: Start: 08-24-2019 End: 08-24-2019 SCREEN MAMM (CAD) W/VICKIE BILAT Comments: See Note; NOTES: [facility] Imaging Services [address] [place] [address] SCREEN MAMM (CAD) W/VICKIE BILAT MR#: [id number] Acct: [id number] Name: SADI BRYSON Rep #: [id number] : 1980 F 39 From: Elder manning MD PCP: Dr. Olive Jurado DO Status: REG CLI Study: SCREEN MAMM (CAD) W/VICKIE BILAT Date of Exam: 0 08/24/19 Exam# [id number] Ordering Dr: Cara Yu MAMMOGRAPHY - BILATERAL SCREENING REASON FOR EXAM: Female, 39 years old. Routine annual screening examination. PERTINENT HISTORY: Grandmother with breast cancer. TECHNIQUE: Digital bilateral breast vickie (3D mammographic acquisition) in the CC and MLO projections. 2-D mediolateral oblique (MLO) and craniocaudad (CC) views of both breasts were obtained. CAD: Full Field Digital Mammography with Computer Added Detection was performed. COMPARISON: Comparison is made with prior examination of May 07, 2018. FINDINGS: Breast Composition: The breasts are almost entirely fatty. There are no dominant masses or suspicious calcifications. Stable benign-appearing bilateral axillary lymph nodes. No other significant abnormalities are identified. There has been no significant change since the prior study. BI/SCREEN MAMM (CAD) W/VICKIE BILAT IMPRESSION: Stable bilateral screening mammogram. Yearly follow-up mammogram recommended. (A) ASSESSMENT CATEGORY: BIRADS Category 2: Benign. A letter regarding these results will be sent to the patient by the facility within 30 days. Approximately 10% of breast cancers are not detected by mammography. A normal mammogram should not delay biopsy of a clinically suspicious abnormality. [id number] Electronically Signed: Elder Alarcon, at 14:19 EDT , Service support , CC: RANJITH Yu; Dr. Olive Jurado DO Adviser Sales: Signed Olive Jurado Work Phone: Start: 08-24-2019 End: 08-24-2019 Transvaginal Non- Comments: See Note; NOTES: [facility] Imaging Services [address] [place] [address] Transvaginal Non- MR#: [id number] Acct: [id number] Name: SADI BRYSON Rep #: [id number] : 1980 F 39 From: Elder manning MD PCP: Dr. Olive Jurado DO Status: REG CLI Study: Transvaginal Non- Date of Exam: Exam# [id number] Ordering Dr: Cara Yu STUDY: ULTRASOUND OF THE FEMALE PELVIS - COMPLETE REASON FOR EXAM: Female, 39 years old. Irregular menses LMP: August 14, 2019. TECHNIQUE: Transabdominal and Transvaginal TECHNICAL QUALITY: Adequate. COMPARISON: None. FINDINGS: The uterus is anteverted and is in a midline position. The uterus is enlarged and measures 12.2 cm x 8.4 cm x 5.8 cm. There is a Nabothian cyst of the cervix. The endometrium is thickened and measures 33 mm in thickness, and is hyperechoic. There is no demonstrated endometrial mass. There is no demonstrated myometrial mass. I.U.D. - The patient does not have an I.U.D. The right ovary is visualized. The right ovary measures 2.7 cm x 1.9 cm x 2.8 cm. There is no right ovarian cyst or ovarian mass. There is no visualized right adnexal mass or complex lesion. There is normal arterial and normal venous vascularity. The left ovary is visualized. The left ovary measures 2.6 cm x 2.3 cm x 2.6 cm. There is no left ovarian cyst or ovarian mass. There is no visualized left adnexal mass or complex lesion. There is normal arterial and normal venous vascularity. There is no fluid in the cul-de-sac. The pre void volume of the bladder was 20 ml. Polycystic ovary disease: No. US/Transvaginal Non- IMPRESSION: Enlarged uterus with a thickened endometrium. Electronically Signed: Elder Alarcon, at 15:33 EDT , Service support , CC: RANJITH Yu; Dr. Olive Jurado DO Adviser Sales: Signed Olive Jurado Work Phone: Start: 08-07-2019 End: 08-07-2019 Wireless Manager Office Visit Report Comments: See Note; NOTES: [facility] [address] [place] [address]. 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) Health Information Systems Technician Required: No Is patient in pain?: No Allergies No Known Allergies Allergy (Verified 08/07/19 11:00) Medications levothyroxine 75 mcg tablet 75 mcg PO DAILY 04/04/18 [History Confirmed 08/07/19] metformin 1,000 mg tablet 500 mg PO BID tab 08/07/19 [History Confirmed 08/07/19] semaglutide 7 mg tablet 7 mg PO DAILY 08/07/19 [History Confirmed 08/07/19] Post menopausal: No Patient : No : No PFSH Medical History History of depression (Acute) PCOS (polycystic ovarian syndrome) (Acute) Thyroid disorder (Acute) Surgical History delivery delivered (Acute) Hx laparoscopic cholecystectomy (Acute) Family History Unknown Heart disease Cancer ovarian Breast cancer Social History (Updated 08/07/19 @ 11:22 by RANJITH Mcnamara) Smoking Status: Never smoker alcohol intake: current alcohol intake frequency: holidays/special occasions only substance use type: does not use caffeine: Yes what type of physical activity do you participate in: other details: crossfit frequency: 3-4 times per week seatbelt use: always do you feel safe at home: Yes additional social history: Single- Works at [employer] Pregancy History 2 Elective abortions Hx Para 2 Spontaneous abortions Hx # Term Pregnancies Ectopic pregnancies Hx # Pregnancies Multiple births # of living children Past Pregnancies Del. Date Name GA/Weeks Outcome Route Bth Weight Infant Gen Labor Lgth Anesthesia Del Locatn Provider FOB Unknown 2006 Gil Unknown 2009 Mikie [facility] Encounter for routine gynecological examination: Details: SADI BRYSON is a 39 year old who presents for annual exam. Menses occur 4-5 times per year (normal pattern for her/PCOS) but does have some heavier menses, bleeds through clothing. Not with every menses. Typically will think done with menses then have big gush. No new sexual partner. Last PAP: 2014 History of abnormal PAP: no Last mammogram: 04/2018 History of abnormal mammogram: no Other preventative health care screenings: Dr. Jurado Female Reproductive History Questions: Metorrhagia: Yes, Sexually active: No ROS Const Constitutional: Denies fatigue, weight gain or weight loss Cardio Card: Denies chest pain Resp Resp: Denies cough or shortness of breath with activity GI GI: Denies abdominal pain, bloating, change in stools, constipation or vomiting : Reports as per HPI; denies difficulty urinating, pelvic pain, urinary frequency, urinary incontinence, urinary urgency, vaginal discharge or vaginal itching Exam Const General: cooperative, healthy appearing, no acute distress, well developed Nutritional Appearance: obese Orientation: alert, oriented to person, oriented to place HENID Head: normal to inspection Neck Neck: normal visual inspection Thyroid: thyroid normal Lymphatic: no lymphadenopathy noted Chest Breast inspection: normal inspection of the breasts, normal inspection of the axillae Breast palpation: normal palpation of the breasts, normal palpation of the axillae, no axillary lymphadenopathy Resp Effort Inspection: normal respiratory effort GI Palpation: soft, no masses, nontender Rectal Exam: deferred External Female Exam: normal external appearance, normal appearance of the urethra Urethra: normal appearance of the urethra, normal palpation Speculum Exam - Vagina: normal appearance of the vagina, normal vaginal discharge Speculum Exam - Cervix: normal appearance of the cervix Bimanual Exam- Vagina Uterus: normal bimanual exam, uterine size normal, uterine shape normal, uterus non-tender Bimanual Exam- Adnexa, other: normal adnexae, no adnexal masses, pelvic support normal, adnexae non- tender Pelvic Support: normal Neuro General: alert, oriented x3 Psych Affect: normal affect Assessment Plan Problems 1. Encounter for gynecological examination with abnormal finding Z01.411 2. Papanicolaou smear for cervical cancer screening Z12.4 3. Menorrhagia with irregular cycle N92.1 Plan Completed breast and pelvic exam Reviewed diet and exercise Pap thin prep pap with HPV Mammogram ordered breast self exam encouraged monthly Contraception na Ultrasound, declines medication intervention, IUD vs cyclic provera as concerned with weight gain. RTO 1 year, prn with problems Cara Yu PATIENT COORDINATOR Orders Orders: SCREEN MAMM (CAD) W/VICKIE BILAT Today Z80.3 Pelvic (Non ) Today N92.1 Transvaginal Non- Today N92.1 Plan Detail Goals Decrease pain and spasm Barriers Obesity Coding Level of Care Code Off vis,est,prev 18-39yrs Diagnoses Encounter for gynecological examination with abnormal finding Z01.411 ?Gynecological examination findings: abnormal findings PRESENT Papanicolaou smear for cervical cancer screening Z12.4 Menorrhagia with irregular cycle N92.1 08/07/19 1122 <Electronically signed by Cara KASPER> Date Cara KASPER Cosigner Signature: Date (if applicable) CC: Olive Jurado Start: 2018 End: 2018 Wireless Manager Office Visit Report Comments: See Note; NOTES: [facility] [address] [place], [place] [address] OFFICE VISIT Date of Service: 05/10/18 MR#: [id number] Acct: [id number] Name: SADI BRYSON Alexus Rep #: [id number] : 1980 Provider: BULL Yu Age/Sex: 38/F Location: [facility] Status: Signed Intake Vital Signs05/10/18 Height 5 ft 8 in 05/10/18 Weight: 320 lb 8 oz 05/10/18 Body Mass Index (BMI) 48.7 05/10/18 Blood Pressure 124/82 H 05/10/18 Body Mass Index (BMI) 48.4 Intake Visit Reasons: ANNUAL Accompanied by: Self Is patient in pain?: No Allergies No Known Allergies Allergy (Verified 05/10/18 09:32) Medications levothyroxine 75 mcg tablet 75 mcg PO DAILY 04/04/18 [History Confirmed 05/10/18] liraglutide 0.6 mg/0.1 mL (18 mg/3 mL) subcutaneous pen injector 0.6 mg SC DAILY 04/04/18 [History Confirmed 05/10/18] metformin 1,000 mg tablet 1,000 mg PO BID 04/04/18 [History Confirmed 05/10/18] medroxyprogesterone 10 mg tablet 10 mg PO QDAY 10 Days #10 tab 05/10/18 [Rx Confirmed 05/10/18] Is last menstrual period known: No PFSH Medical History History of depression (Acute) PCOS (polycystic ovarian syndrome) (Acute) Thyroid disorder (Acute) Surgical History delivery delivered (Acute) Hx laparoscopic cholecystectomy (Acute) Family History Unknown Heart disease Cancer ovarian Breast cancer Social History Smoking Status: Never smoker alcohol intake: current alcohol intake frequency: holidays/special occasions only substance use type: does not use caffeine: Yes what type of physical activity do you participate in: walking, aerobics frequency: 1-2 times per week seatbelt use: always do you feel safe at home: Yes additional social history: Single- Works at [employer] Pregancy History 2 Elective abortions Hx Para 2 Spontaneous abortions Past Pregnancies Del. DatName GA/WeeksOutcome Route [facility] LocaProviderFOB e ht en tn Unknown 2006 [place] w Unknown 2009 [place] k HPI ANNUAL: Details: SADI BRYSON is a 38 year old who presents for annual exam.Menses very light most months but then about twice a year will be heavy and longer. Last heavy menses was in November. Now , he had other partners. Wanting STD screen. Denies symptoms See tobacco sample puller for PCOS and thyroid management Last PAP: 2014 History of abnormal PAP: no Last mammogram: 04/2018 History of abnormal mammogram: no ROS Const Constitutional: Denies fatigue, weight gain or weight loss Cardio Card: Denies chest pain Resp Resp: Denies cough or shortness of breath with activity GI GI: Denies abdominal pain, bloating, change in stools, constipation or vomiting : Reports as per HPI; denies difficulty urinating, pelvic pain, urinary frequency, urinary incontinence, urinary urgency, vaginal discharge or vaginal itching Exam Const General: cooperative, healthy appearing, no acute distress, well developed Nutritional Appearance: obese Orientation: alert, oriented to person, oriented to place HENID Head: normal to inspection Neck Neck: normal visual inspection Thyroid: thyroid normal Lymphatic: no lymphadenopathy noted Chest Breast inspection: normal inspection of the breasts, normal inspection of the axillae Breast palpation: normal palpation of the breasts, normal palpation of the axillae, no axillary lymphadenopathy Resp Effort AND Inspection: normal respiratory effort GI Palpation: soft, no masses, nontender Rectal Exam: deferred External Female Exam: normal external appearance, normal appearance of the urethra Urethra: normal appearance of the urethra, normal palpation Speculum Exam - Vagina: normal appearance of the vagina, normal vaginal discharge Speculum Exam - Cervix: normal appearance of the cervix Bimanual Exam- Vagina AND Uterus: normal bimanual exam, uterine size normal, uterine shape normal, uterus non-tender Bimanual Exam- Adnexa, other: normal adnexae, no adnexal masses, pelvic support normal, adnexae non-tender Pelvic Support: normal Neuro General: alert, oriented x3 Psych Affect: normal affect Assessment AND Plan Problems 1. Encounter for gynecological examination with abnormal finding Z01.411 2. Screen for STD (sexually transmitted disease) Z11.3 3. Class 3 severe obesity due to excess calories without serious comorbidity with body mass index (BMI) of 45.0 to 49.9 in adult E66.01; Z68.42 4. Secondary oligomenorrhea N91.4 Plan Completed breast and pelvic exam Reviewed diet and exercise. Pap 2015 Mammogram recent Contraception NA Provera X 10 days every 3 months to try to avoid heavy menses. GCC, OLENA trich, HIV, RPR, HSV, Hep C:call on with positives. RTO 1 year, prn with problems Cara Yu PATIENT COORDINATOR Orders Orders: Medications New: Plan Detail Goals Decrease pain and spasm Barriers Obesity Coding Level of Care Code Off vis,est,prev 18-39yrs Diagnoses Encounter for gynecological examination with abnormal finding Z01.411 Gynecological examination findings: abnormal findings PRESENT Screen for STD (sexually transmitted disease) Z11.3 Class 3 severe obesity due to excess calories without serious comorbidity with body mass index (BMI) of 45.0 to 49.9 in adult E66.01; Z68.42 Obesity type: due to excess calories Obesity classification: adult class 3 (BMI >= 40) Serious obesity comorbidity presence: without serious comorbidity Body mass index: BMI 45.0-49.9 Secondary oligomenorrhea N91.4 Oligomenorrhea type: secondary 05/10/18 1002 <Electronically signed by Cara KASPER> Date Cara KASPER Cosigner Signature: Date (if applicable) CC: Olive Jurado Start: 04-05-2018 End: 04-05-2018 Chiropractic Report Comments: See Note; NOTES: [facility] [address] [place] [address] OFFICE VISIT Date of Service: 03/29/18 MR#: [id number] Acct: [id number] Name: SADI BRYSON Alexus Rep #: [id number] : 1980 Provider: Divine Mustafa D.C. Age/Sex: 37/F Location: [facility] Status: Signed Intake Vital Signs03/29/18 Height 5 ft 9 in 03/29/18 Weight: 250 lb 03/29/18 Body Mass Index (BMI) 36.9 Intake Visit Reasons: low back pain Chief Complaint: neck and low back pain Is patient in pain?: Yes Allergies No Known Allergies Allergy (Verified 04/04/18 11:24) Medications levothyroxine 75 mcg tablet 75 mcg PO DAILY 04/04/18 [History Confirmed 04/04/18] liraglutide 0.6 mg/0.1 mL (18 mg/3 mL) subcutaneous pen injector 0.6 mg SC DAILY 04/04/18 [History Confirmed 04/04/18] metformin 1,000 mg tablet 1,000 mg PO BID 04/04/18 [History Confirmed 04/04/18] PFSH Social History Smoking Status: Never smoker alcohol intake: current alcohol intake frequency: holidays/special occasions only substance use type: does not use caffeine: Yes what type of physical activity do you participate in: walking, aerobics frequency: 1-2 times per week seatbelt use: always do you feel safe at home: Yes additional social history: Single- Works at [employer] low back pain : Chief Complaint: Low back pain Visit Number: 1 Details: SADI BRYSON is a 37 year old F who presents with lower back pain. She states that over the weekend she was at a conference with prolonged sitting, which caused increased low back pain. Today Sadi rates her pain a 4/10 and described it as a deep and sore ache that bands across the low back. Bending, lifting, twisting, and prolonged sitting causes increased pain. Sadi denies any numbness, tingling, or radiculopathy. Location: mid-low back Duration: constant Aggravating or associated factors: bending, lifting, and prolonged sitting Relieving factors: chiro Pain Quality: aching, dull, cramping Exam Musc General: Yes normal posture, normal gait and joint tenderness (C2, C6, T2, T3, T6,T7,T8, L4, L5) Cervical Spine: normal cervical lordosis (anterior head carriage), cervical ROM normal, cervical muscular tenderness, pain with cervical ROM with lateral flexion to right and with lateral flexion to left, cervical spasm (R>L scalene, bilateral upper trap), cervical ROM abnormal lateral flexion to the right decreased and lateral flexion to the left decreased Thoracic/Lumbar Spine: thoracic and lumbar spine normal to inspection, thoraco-lumbar ROM normal, pain with thoraco-lumbar ROM with forward flexion, with lateral flexion to the right, with lateral flexion to the left, with rotation to the right and with rotation to the left, paraspinal tenderness bilaterally in the upper thoracic and in the mid thoracic and on the right greater than left (lumbar), thoraco-lumbar ROM limited with forward flexion, with lateral flexion to the right, with lateral flexion to the left, with rotation to the right and with rotation to the left, thoraco-lumbar spasm bilaterally in the upper thoracic and on the right greater than left (QL) Sacroiliac joints: on the right Office Procedures Chiropractic Treatments Procedures Manipulation: 3-4 regions (C2,C6,T3,T8,L5) Electrical Stimulation: 15 mins (Lumbar ) Traction, Mechanical: Yes Details: Lumbar traction 15 min Assessment AND Plan 1. Segmental and somatic dysfunction of lumbar region M99.03 Orders Orders: 2. Segmental and somatic dysfunction of thoracic region M99.02 Orders Orders: 3. Segmental and somatic dysfunction of cervical region M99.01 Orders Orders: Plan Detail Other Orders Orders: Additional Comments Patient instructed to follow up should pain persist. Goals Decrease pain and spasm Barriers Obesity Follow Up PRN Coding Level of Care Code No Charge Diagnoses Segmental and somatic dysfunction of lumbar region M99.03 Segmental and somatic dysfunction of thoracic region M99.02 Segmental and somatic dysfunction of cervical region M99.01 Additional Codes Procedures - Manipulation: 3-4 regions (91533) Procedures - Electrical Stimulation: 15 mins (15894) Procedures - Traction, Mechanical: Yes (46621) 04/05/18 1304 <Electronically signed by Divine Mustafa D.C.> Date Divine Mustafa D.C. Cosigner Signature: Date (if applicable) CC: Olive Jurado Start: 04-04-2018 End: 04-04-2018 Wireless Manager Office Visit Report Comments: See Note; NOTES: [facility] [address] [place] [address] OFFICE VISIT Date of Service: 04/04/18 MR#: [id number] Acct: [id number] Name: SADI BRYSON Rep #: [id number] : 1980 Provider: BULL Yu Age/Sex: 37/F Location: [facility] Status: Signed Intake Vital Signs04/04/18 Height 5 ft 8 in 04/04/18 Weight: 319 lb 04/04/18 Body Mass Index (BMI) 48.4 04/04/18 Blood Pressure 110/80 Intake Visit Reasons: PAINFUL BRUISE ON BREAST Chief Complaint: Bruise on right breast Health Information Systems Technician Required: No Is patient in pain?: Yes Allergies No Known Allergies Allergy (Verified 04/04/18 11:24) Medications levothyroxine 75 mcg tablet 75 mcg PO DAILY 04/04/18 [History Confirmed 04/04/18] liraglutide 0.6 mg/0.1 mL (18 mg/3 mL) subcutaneous pen injector 0.6 mg SC DAILY 04/04/18 [History Confirmed 04/04/18] metformin 1,000 mg tablet 1,000 mg PO BID 04/04/18 [History Confirmed 04/04/18] Is last menstrual period known: No Post menopausal: No Patient : No : No PFSH Medical History History of depression (Acute) PCOS (polycystic ovarian syndrome) (Acute) Thyroid disorder (Acute) Surgical History delivery delivered (Acute) Hx laparoscopic cholecystectomy (Acute) Family History Unknown Heart disease Cancer ovarian Breast cancer Social History Smoking Status: Never smoker alcohol intake: current alcohol intake frequency: holidays/special occasions only substance use type: does not use caffeine: Yes what type of physical activity do you participate in: walking, aerobics frequency: 1-2 times per week seatbelt use: always do you feel safe at home: Yes additional social history: Single- Works at [employer] PAINFUL BRUISE ON BREAST: Details: SADI BRYSON is a 37 year old who presents for new patient bruise to right breast X 3 days and unaware of trauma. States only minimally tender. No masses. Strong family history of breast cancer:maternal grandmother and also first cousin triple negative breast Ca in her 20s Pregancy History 2 Elective abortions Hx Para 2 Spontaneous abortions Past Pregnancies Del. DatName GA/WeeksOutcome Route [facility] LocaProviderFOB e ht en tn Unknown 2006 [place] w Unknown 2009 [place] k ROS Const Constitutional: Reports system reviewed and no additional complaints, except as docu GI GI: Denies abdominal pain or change in bowel habits Exam Const General: cooperative, no acute distress Orientation: oriented x3 Chest Breast inspection: normal inspection of the breasts (left), abnormal inspection of the breast (Right with 2-3cm ecchymotic area, inner mid portion 3-4:00) Breast palpation: normal palpation of the breasts (no masses, normal nipples), normal palpation of the axillae, no axillary lymphadenopathy Assessment AND Plan Problems 1. Bruise of breast N64.89 Plan Reassured concerning area probably due to some trauma Will proceed with screening bilateral mammogram Orders Orders: Medications New: Plan Detail Goals Decrease pain and spasm Barriers Obesity Coding Level of Care Code Off vis,new,level 3 Diagnoses Bruise of breast N64.89 04/04/18 1142 <Electronically signed by Cara KASPER> Date Cara KASPER Cosigner Signature: Date (if applicable) CC: Olive Jurado Start: 02-17-2018 End: 02-17-2018 Chiropractic Report Comments: See Note; NOTES: [facility] [address] [place] [address] OFFICE VISIT Date of Service: 02/17/18 MR#: [id number] Acct: [id number] Name: SADI BRYSON Rep #: [id number] : 1980 Provider: Divine Mustafa D.C. Age/Sex: 37/F Location: [facility] Status: Signed Intake Vital Signs02/17/18 Height 5 ft 9 in 02/17/18 Weight: 250 lb 02/17/18 Body Mass Index (BMI) 36.9 Intake Visit Reasons: back pain Chief Complaint: neck and low back pain Is patient in pain?: Yes Allergies No Known Allergies Allergy (Verified 09/16/14 09:18) Medications Citalopram [Celexa] 20 mg PO DAILY 09/16/14 [History Confirmed 09/16/14] Ciprofloxacin [Cipro] 250 mg PO BID #10 tab 09/17/14 [Rx] Hydrocodone Bitart/Apap 5-325 [[place] 5MG-325MG] 1 - 2 tab PO Q4H PRN PRN #14 tab 09/17/14 [Rx] PFSH Social History Smoking Status: Never smoker alcohol intake: current alcohol intake frequency: holidays/special occasions only substance use type: does not use what type of physical activity do you participate in: walking, aerobics frequency: 1-2 times per week HPI back pain : Chief Complaint: Neck and low back pain Visit Number: 1 Details: SADI BRYSON is a 37 year old F who presents with neck and low back pain. She states that recently she had the flu, causing increased pain with vomiting. Today Sadi rates her pain a 3/10 and describes it as a deep and sore ache that is localized to the R side of the low back. Bending, lifting, and twisting causes a slight increase in pain. The patient also complains of neck pain, stating it is stiff and sore. Sadi denies any numbness, tingling, or radiculopathy. Location: Neck and low back pain Duration: intermittent Aggravating or associated factors: bending, lifting, twisting, and rotation of the neck Relieving factors: chiro Pain Quality: aching, dull, cramping Exam Musc General: Yes normal posture, normal gait and joint tenderness (C2, C6, T2, T3, T8, L4, L5) Cervical Spine: normal cervical lordosis (anterior head carriage), cervical ROM normal, pain with cervical ROM, cervical spasm (R>L scalene, bilateral upper trap), cervical muscular tenderness Thoracic/Lumbar Spine: thoracic and lumbar spine normal to inspection, thoraco-lumbar ROM normal, pain with thoraco-lumbar ROM, thoraco-lumbar spasm bilaterally in the upper thoracic and on the right greater than left (QL), paraspinal tenderness on the right greater than left (lumbar) and bilaterally in the upper thoracic, thoraco-lumbar ROM limited Sacroiliac joints: on the right Office Procedures Chiropractic Treatments Procedures Manipulation: 3-4 regions (C2,C6,T3, T8,L5) Electrical Stimulation: 15 mins (cervical and lumbar ) Traction, Mechanical: Yes Details: Lumbar traction 15 min Assessment AND Plan 1. Segmental and somatic dysfunction of cervical region M99.01 Orders Orders: 2. Segmental and somatic dysfunction of thoracic region M99.02 Orders Orders: 3. Radiculopathy of cervical region M54.12 Orders Orders: 4. Segmental and somatic dysfunction of lumbar region M99.03 Orders Orders: Plan Detail Additional Comments Continue care on a PRN basis. Goals Decrease pain and spasm Barriers Obesity Follow Up PRN Coding Level of Care Code No Charge Diagnoses Segmental and somatic dysfunction of cervical region M99.01 Segmental and somatic dysfunction of thoracic region M99.02 Radiculopathy of cervical region M54.12 Segmental and somatic dysfunction of lumbar region M99.03 Additional Codes Procedures - Manipulation: 3-4 regions (30143) Procedures - Electrical Stimulation: 15 mins (60408) Procedures - Traction, Mechanical: Yes (66852) 02/17/18 1114 <Electronically signed by Divine Mustafa D.C.> Date Divine Mustafa D.C. Cosigner Signature: Date (if applicable) CC: Olive Jurado Start: 01-10-2018 End: 01-10-2018 Chiropractic Report Comments: See Note; NOTES: [email or web address] [address] [place] [address] OFFICE VISIT Date of Service: 01/03/18 MR#: [id number] Acct: [id number] Name: SADI BRYSON Alexus Rep #: [id number] : 1980 Provider: Divine Mustafa D.C. Age/Sex: 37/F Location: [facility] Status: Signed Intake Vital Signs01/03/18 Height 5 ft 9 in 01/03/18 Weight: 250 lb 01/03/18 Body Mass Index (BMI) 36.9 Intake Visit Reasons: back pain Chief Complaint: neck and low back pain Is patient in pain?: Yes Allergies No Known Allergies Allergy (Verified 09/16/14 09:18) Medications Citalopram [Celexa] 20 mg PO DAILY 09/16/14 [History Confirmed 09/16/14] Ciprofloxacin [Cipro] 250 mg PO BID #10 tab 09/17/14 [Rx] Hydrocodone Bitart/Apap 5-325 [[place] 5MG-325MG] 1 - 2 tab PO Q4H PRN PRN #14 tab 09/17/14 [Rx] PFSH Social History Smoking Status: Never smoker alcohol intake: current alcohol intake frequency: holidays/special occasions only substance use type: does not use what type of physical activity do you participate in: walking, aerobics frequency: 1-2 times per week HPI back pain : Chief Complaint: neck and low back Visit Number: 4 Details: SADI BRYSON is a 37 year old F who presents with neck and low back pain. Sadi states that over the past week she has began experiencing tightness across the low back with rotation and lifting, she recently began [employer] 10 weeks ago. The patient also complains of neck pain described as a tight and deep ache that bands across the neck. Rotation of the neck, looking down, and lifting causes increased pain. Sadi denies any numbness, tingling, or radiculopathy. Location: neck and low back Duration: intermittent Aggravating or associated factors: bending, lifting, twisting, and rotation Relieving factors: chiro Pain Quality: aching, dull, cramping, sharp Exam Musc General: Yes normal posture, normal gait and joint tenderness (C2, C6, T2, T3, T8, L4, L5) Cervical Spine: normal cervical lordosis (anterior head carriage), cervical ROM normal, pain with cervical ROM, cervical spasm (R>L scalene, bilateral upper trap), cervical muscular tenderness bilateral lower: trapezius and paracervical muscle Thoracic/Lumbar Spine: thoracic and lumbar spine normal to inspection, thoraco-lumbar ROM normal, pain with thoraco-lumbar ROM, thoraco-lumbar spasm, paraspinal tenderness bilaterally in the lower lumbar, in the mid lumbar and in the upper thoracic, thoraco-lumbar ROM limited with forward flexion Sacroiliac joints: on the right, on the left Office Procedures Chiropractic Treatments Procedures Manipulation: 3-4 regions (C2, C6, T2,T8, L3, L5) Electrical Stimulation: 15 mins (cervical and lumbar ) Traction, Mechanical: Yes Details: Lumbar traction 15 min Assessment AND Plan 1. Segmental and somatic dysfunction of cervical region M99.01 Orders Orders: 2. Segmental and somatic dysfunction of thoracic region M99.02 Orders Orders: 3. Radiculopathy of cervical region M54.12 Orders Orders: 4. Segmental and somatic dysfunction of lumbar region M99.03 Orders Orders: Plan Detail Additional Comments Follow up PRN. Goals Decrease pain and spasm Barriers Obesity Follow Up PRN Coding Level of Care Code No Charge Diagnoses Segmental and somatic dysfunction of cervical region M99.01 Segmental and somatic dysfunction of thoracic region M99.02 Radiculopathy of cervical region M54.12 Segmental and somatic dysfunction of lumbar region M99.03 Additional Codes Procedures - Manipulation: 3-4 regions (65100) Procedures - Electrical Stimulation: 15 mins (77056) Procedures - Traction, Mechanical: Yes (47519) 01/10/18 1408 <Electronically signed by Divine Mustafa D.C.> Date Divine Mustafa D.C. Cosigner Signature: Date (if applicable) CC: Olive Jurado Start: 08-16-2017 End: 08-16-2017 Chiropractic Report Comments: See Note; NOTES: [email or web address] [address] [place] [address] OFFICE VISIT Date of Service: 08/12/17 MR#: [id number] Acct: [id number] Name: SADI BRYSON Rep #: [id number] : 1980 Provider: Divine Mustafa D.C. Age/Sex: 37/F Location: [facility] Status: Signed Intake Vital Signs08/12/17 Height 5 ft 9 in 08/12/17 Weight: 250 lb 08/12/17 Body Mass Index (BMI) 36.9 Intake Visit Reasons: back pain Chief Complaint: neck pain Is patient in pain?: Yes Allergies No Known Allergies Allergy (Verified 09/16/14 09:18) Medications Citalopram [Celexa] 20 mg PO DAILY 09/16/14 [History Confirmed 09/16/14] Ciprofloxacin [Cipro] 250 mg PO BID #10 tab 09/17/14 [Rx] Hydrocodone Bitart/Apap 5-325 [[place] 5MG-325MG] 1 - 2 tab PO Q4H PRN PRN #14 tab 09/17/14 [Rx] PFSH Social History Smoking Status: Never smoker alcohol intake: current alcohol intake frequency: holidays/special occasions only substance use type: does not use what type of physical activity do you participate in: walking, aerobics frequency: 1-2 times per week HPI back pain : Chief Complaint: back pain Visit Number: 3 Details: SADI BRYSON is a 37 year old F who presents with low back pain. She states that recently she drove a long distance on vacation causing increased low back pain, along with frequent walking and bending. Today the patient rates her pain a 4/10 and describes it as a deep ache that bands across the low back. Bending, lifting, and prolonged sitting can cause a sharp pain although Sadi denies any numbness, tingling, or radiculopathy. Onset: 08/04/17 Location: low back Duration: intermittent Aggravating or associated factors: bending, lifting and prolonged sitting Relieving factors: chiro Pain Quality: aching, dull, sharp Exam Musc General: Yes normal posture, normal gait and joint tenderness (C2, C6, T2, T3, T8, L4, L5) Cervical Spine: normal cervical lordosis (anterior head carriage), cervical ROM normal, pain with cervical ROM with lateral flexion to right and with lateral flexion to left, cervical spasm (R>L scalene, bilateral upper trap) Thoracic/Lumbar Spine: thoracic and lumbar spine normal to inspection, thoraco-lumbar ROM normal, pain with thoraco-lumbar ROM with forward flexion, with lateral flexion to the left and with lateral flexion to the right, thoraco-lumbar spasm bilaterally (QL) Sacroiliac joints: on the right, on the left Office Procedures Chiropractic Treatments Procedures Manipulation: 3-4 regions (C2, C6, T2,T8, L4, L5) Electrical Stimulation: 15 mins Location: cervical and lumbar Traction, Mechanical: Yes Details: Lumbar traction 15 min Assessment AND Plan Problems 1. Segmental and somatic dysfunction of cervical region M99.01 2. Segmental and somatic dysfunction of thoracic region M99.02 3. Segmental and somatic dysfunction of lumbar region M99.03 Plan Follow up PRN. Orders Orders: Plan Detail Goals Decrease pain and spasm Barriers Obesity Follow Up PRN Coding Level of Care Code No Charge Diagnoses Segmental and somatic dysfunction of cervical region M99.01 Segmental and somatic dysfunction of thoracic region M99.02 Segmental and somatic dysfunction of lumbar region M99.03 Additional Codes Procedures - Electrical Stimulation: 15 mins (27617) Procedures - Traction, Mechanical: Yes (42513) Procedures - Manipulation: 3-4 regions (27403) 08/16/17 1317 <Electronically signed by Divine Mustafa D.C.> Date Divine Mustafa D.C. Cosigner Signature: Date (if applicable) CC: Olive Jurado Start: 04-12-2017 End: 04-12-2017 Chiropractic Report Comments: See Note; NOTES: [email or web address] [address] [place] [address] OFFICE VISIT Date of Service: 04/08/17 MR#: [id number] Acct: [id number] Name: SADI BRYSON Rep #: [id number] : 1980 Provider: Divine Mustafa D.C. Age/Sex: 36/F Location: [facility] Status: Signed Intake Vital Signs04/08/17 Height 5 ft 9 in 04/08/17 Weight: 250 lb 5 oz 04/08/17 Body Mass Index (BMI) 36.9 Intake Visit Reasons: neck pain Is patient in pain?: Yes Allergies No Known Allergies Allergy (Verified 09/16/14 09:18) Medications Citalopram [Celexa] 20 mg PO DAILY 09/16/14 [History Confirmed 09/16/14] Ciprofloxacin [Cipro] 250 mg PO BID #10 tab 09/17/14 [Rx] Hydrocodone Bitart/Apap 5-325 [[place] 5MG-325MG] 1 - 2 tab PO Q4H PRN PRN #14 tab 08/03/15 [Rx] PFSH Social History Smoking Status: Never smoker alcohol intake: current alcohol intake frequency: holidays/special occasions only substance use type: does not use what type of physical activity do you participate in: walking, aerobics frequency: 1-2 times per week HPI neck pain : Chief Complaint: neck pain Visit Number: 1 Referral source: Previous patient Details: SADI BRYSON is a 36 year old F who presents with neck pain. She states that she was in a conference for two days with a lot of sitting and writing, causing a strain on the neck. Today Sadi rates her pain a 5/10 and describes it as a tight sore ache with the sensation of her neck being crushed . The pain is staying localized to the neck and upper shoulder, pushing, pulling, looking down, and driving cause increased pain. The patient denies any numbness, tingling or radiculopathy. Onset: 04/01/17 Location: neck and upper shoulders Duration: constant Aggravating or associated factors: pushing,pulling, looking down, and driving Relieving factors: sitting in a chair reclined back Pain Quality: aching, dull, other (tight ) Exam Musc General: Yes normal posture, normal gait and joint tenderness (C5, C6, T2, T3, T8, L4, L5) Cervical Spine: normal cervical lordosis (anterior head carriage), cervical ROM normal, pain with cervical ROM with lateral flexion to right and with lateral flexion to left, cervical spasm (R>L scalene, bilateral upper trap) Thoracic/Lumbar Spine: thoracic and lumbar spine normal to inspection, thoraco-lumbar ROM normal, pain with thoraco-lumbar ROM with forward flexion, with lateral flexion to the left and with lateral flexion to the right, thoraco-lumbar spasm bilaterally (QL) Sacroiliac joints: on the right, on the left Office Procedures Chiropractic Treatments Procedures Manipulation: 3-4 regions (C6, T2, T6, T8, L5) Electrical Stimulation: 15 mins Location: Cervical Traction, Mechanical: Yes Details: Traction 15 min Lumbar Assessment AND Plan 1. Segmental and somatic dysfunction of cervical region M99.01 Orders Orders: 2. Segmental and somatic dysfunction of thoracic region M99.02 Orders Orders: 3. Radiculopathy of cervical region M54.12 Orders Orders: 4. Segmental and somatic dysfunction of lumbar region M99.03 Orders Orders: Plan Detail Goals Decrease pain and spasm Barriers Obesity Follow Up PRN Coding Level of Care Code No Charge Diagnoses Segmental and somatic dysfunction of cervical region M99.01 Segmental and somatic dysfunction of thoracic region M99.02 Radiculopathy of cervical region M54.12 Segmental and somatic dysfunction of lumbar region M99.03 Additional Codes Procedures - Electrical Stimulation: 15 mins (31866) Procedures - Traction, Mechanical: Yes (06485) Procedures - Manipulation: 3-4 regions (81822) 04/12/17 1041 <Electronically signed by Divine Mustafa D.C.> Date Divine Mustafa D.C. Cosigner Signature: Date (if applicable) CC: Olive Jurado Start: 03-18-2017 End: 03-18-2017 Chest PA and Lateral Comments: See Note; NOTES: [facility] [address] [place] [id number] Chest PA and Lateral MR#: [id number] Acct: [id number] Name: SADI BRYSON Rep #: [id number] : 1980 F 36 From: Elder Alarcon MD PCP: Olive Jurado DO Status: REG CLI Study: Chest PA and Lateral Date of Exam: 03/18/17 Exam# [id number] Ordering Dr: Olive Jurado DO STUDY: X-RAY CHEST REASON FOR EXAM: Female, 36 years old. Cough and chest congestion. TECHNIQUE: PA and lateral views of the chest. COMPARISON: None. FINDINGS: The lungs are clear and expanded. Scattered calcified granulomas. There is no demonstrated pleural abnormality. Normal size heart. Normal mediastinum and mckay. Normal visualized pulmonary arteries. Normal visualized aortic arch and descending thoracic aorta. Normal visualized thoracic spine. Normal visualized ribs, clavicles, and shoulders. There is no demonstrated abnormality of the visualized soft tissue structures of the upper abdomen. RAD/Chest PA and Lateral IMPRESSION: No acute abnormality is seen. Electronically Signed: Elder Alarcon MD at 10:45 EST Tel [phone], Service support , CC: Olive Jurado DO Adviser Sales: Signed Olive Jurado Work Phone: Start: 12-08-2016 End: 12-08-2016 Appl modality 1/> areas elec stimj unattended Divine B Dossi DC Work Phone: Start: 12-08-2016 End: 12-08-2016 Chiropractic manipulative tx spinal 3-4 regions Divine B Dossi DC Work Phone: Start: 09-03-2016 End: 09-03-2016 Appl modality 1/> areas elec stimj unattended Divine B Dossi DC Work Phone: Start: 09-03-2016 End: 09-03-2016 Appl modality 1/> areas traction mechanical Divine B Dossi DC Work Phone: Start: 09-03-2016 End: 09-03-2016 Chiropractic manipulative tx spinal 3-4 regions Divine B Dossi DC Work Phone: Start: 09-03-2016 End: 09-03-2016 Chiropractic manipulation Divine B Dossi DC Work Phone: Start: 09-03-2016 End: 09-03-2016 Electric stimulation therapy Divine B Dossi DC Work Phone: Start: 09-03-2016 End: 09-03-2016 Mechanical traction therapy Divine B Dossi DC Work Phone: Start: 08-31-2016 End: 08-31-2016 Appl modality 1/> areas elec stimj unattended Divine B Dossi DC Work Phone: Start: 08-31-2016 End: 08-31-2016 Appl modality 1/> areas ultrasound ea 15 min Divine B Dossi DC Work Phone: Start: 08-31-2016 End: 08-31-2016 Chiropractic manipulative tx spinal 3-4 regions Divine B Dossi DC Work Phone: Start: 08-31-2016 End: 08-31-2016 Chiropractic manipulation Divine B Dossi DC Work Phone: Start: 08-31-2016 End: 08-31-2016 Electric stimulation therapy Divine B Dossi DC Work Phone: Start: 08-31-2016 End: 08-31-2016 Ultrasound therapy Divine B Dossi DC Work Phone: Start: 08-27-2016 End: 08-27-2016 Appl modality 1/> areas elec stimj unattended Divine B Dossi DC Work Phone: Start: 08-27-2016 End: 08-27-2016 Appl modality 1/> areas ultrasound ea 15 min Divine B Dossi DC Work Phone: Start: 08-27-2016 End: 08-27-2016 Chiropractic manipulative tx spinal 1-2 regions Divine B Dossi DC Work Phone: Start: 08-26-2016 End: 08-27-2016 Chiropract manj 1-2 regions Divine B Dossi DC Work Phone: Start: 08-26-2016 End: 08-27-2016 Electric stimulation therapy Divine B Dossi DC Work Phone: Start: 08-26-2016 End: 08-27-2016 Ultrasound therapy Divine B Dossi DC Work Phone: Start: 08-26-2016 End: 08-26-2016 Dietary management education, guidance, and counseling Divine Dossi DC Start: 08-26-2016 End: 08-27-2016 Chiropract manj 1-2 regions Divine B Dossi DC Work Phone: Start: 08-26-2016 End: 08-27-2016 Electric stimulation therapy Divine Angeles Dossi DC Work Phone: Start: 08-26-2016 End: 08-27-2016 Ultrasound therapy Divine Angeles Dossi DC Work Phone: Start: 12-02-2015 End: 12-02-2015 Thyroid Comments: See Note; NOTES: [facility] [address] [place] [address] Verdana 4d Thyroid MR#: [id number] Acct: [id number] Name: SADI BRYSON Rep #: [id number] : 1980 F 35 From: Felipe Rios MD PCP: Olive Jurado DO Status: REG CLI Study: Thyroid Date of Exam: 12/02/15 Exam# [id number] Ordering Dr: Aspen Owens MD STUDY: THYROID ULTRASOUND REASON FOR EXAM: Female, 35 years old. Goiters TECHNIQUE: Ultrasound evaluation of the thyroid was performed with real-time and static estevez-scale imaging. COMPARISON: Date : FINDINGS: RIGHT LOBE: The right lobe of the thyroid gland measures 5.4 x 2.2 x 1.7 cm. There is a homogeneous echotexture. There are at least three hypoechoic nodules, the largest is in the midpole measuring 4 x 2 x 2 mm. LEFT LOBE: The left lobe of the thyroid gland measures 5.1 x 1.8 x 1.1 cm. There is a homogeneous echotexture. Three hypoechoic appearing nodules, the largest in the lower pole measuring 7 x 5 x 5 mm. ISTHMUS: The isthmus measures two millimeters. The regional lymph nodes are normal. US/Thyroid IMPRESSION: Redemonstration multinodular thyroid goiter. Electronically Signed: Felipe Rios MD at 21:24 EDT , Service support [phone], CC: Aspen Owens MD; Olive Jurado DO Adviser Sales: Signed Olive Jurado Start: 09-21-2014 End: 09-22-2014 Thyroid Comments: See Note; NOTES: [facility] [address] [place] [address] Ultrasound Report MR#: [id number] Acct: [id number] Name: SADI BRYSON Rep #: [id number] : 1980 F 34 From: Vilma Jesus PCP: Olive Jurado DO Status: REG CLI Study: Thyroid Date of Exam: 09/21/14 Exam# [id number] Ordering Dr: Olive Jurado DO STUDY: THYROID ULTRASOUND REASON FOR EXAM: Female, 34 years old. Thyromegaly. TECHNIQUE: Ultrasound evaluation of the thyroid was performed with real-time and static estevez-scale imaging. COMPARISON: None. FINDINGS: RIGHT LOBE: The right lobe of the thyroid gland measures 4.7 x 2.2 x 1.5 cm. There is a homogeneous echotexture. There is a 0.6 x 0.4 x 0.5 cm anechoic/ cystic lesion/nodule present. LEFT LOBE: The left lobe of the thyroid gland measures 4.7 x 1.9 x 1.3 cm. There is a homogeneous echotexture. There is a 0.8 x 0.7 x 0.6 cm hypoechoic nodule and a 0.9 x 0.8 x 0.4 cm complex cystic nodule seen with somewhat irregular margins in mid and lower poles of the left lobe. ISTHMUS: The isthmus measures 0.3 cm . IMPRESSION: Bilaterally benign appearing thyroid nodules. Electronically Signed: Brooklyn Jesus MD at 9:05 EDT Tel , Service support [phone], CC: Olive Jurado DO Adviser Sales: Signed Olive Rodriguezon Work Phone: Start: 09-16-2014 End: 09-16-2014 Abdomen/Pelvis without Cont Comments: See Note; NOTES: [facility] [address] [place] [address] CAT Scan Report MR#: [id number] Acct: [id number] Name: SADI BRYSON Rep #: [id number] : 1980 F 34 From: Karly Miranda MD PCP: Olive Jurado DO Status: REG ER Study: Abdomen/Pelvis without Cont Date of Exam: 09/16/14 Exam# [id number] Ordering Dr: Marilee Marques MD STUDY: CT ABDOMEN AND PELVIS WITHOUT CONTRAST REASON FOR EXAM: Female, 34 years old. Right flank pain with nausea and vomiting. RADIATION DOSAGE (If Supplied By Facility): CTDIvol = ( 33.59 ) mGy, DLP = ( 1946.04 ) mGycm TECHNIQUE: Transaxial images were obtained from the dome of the diaphragm to the symphysis pubis without oral contrast, and without intravenous contrast. Sagittal and coronal images were reconstructed. COMPARISON: None. FINDINGS: The visualized lung bases are unremarkable. Mild cardiomegaly. There is decreased attenuation of the liver consistent with steatosis. There are surgical clips in the gallbladder fossa consistent with a prior cholecystectomy. Normal spleen. Normal pancreas. Normal bilateral adrenal glands. There is minimal to moderate hydronephrosis and hydroureter on the right side due to two obstructing calculi within the far distal right ureter which measures 5 mm and 6.7 mm respectively. There is an additional nonobstructing 3 mm calculus within lower pole right kidney. Normal left kidney. There is a small hiatal hernia. Normal small intestine. Normal colon. The appendix is visualized and appears normal. Normal abdominal aorta. Normal inferior vena cava. Normal retroperitoneum. Normal urinary bladder except for a 2 mm calculus within the dependent portion. Normal visualized uterus. No suspicious adnexal mass. Normal abdominal wall. Normal osseous structures. IMPRESSION: Minimal to moderate hydronephrosis and hydroureter on right side due two obstructing calculi within far distal right ureter. These measure 5 mm and 6.7 mm respectively. 3 mm nonobstructive calculus within lower pole right kidney. There is a 2 mm mobile calculus within the dependent portion of bladder. Hepatic steatosis. Status post cholecystectomy. Electronically Signed: Abby Miranda MD at 11:38 EDT , Service support [phone], CC: Marilee Marques MD; Olive Jurado DO Adviser Sales: Signed Olive Jurado Cholecystectomy Cholecystectomy Patricia calderon CATALYTIC CASE OPERATOR Plan of Treatment Date Care Activity Detail Author Start: 10-16-2022 Influenza vaccination INFLUENZA (Season Ended) [facility] Start: 02-15-2022 DEPRESSION ASSESSMENT DEPRESSION ASSESSMENT [facility] Start: 12-08-2021 Lipid panel LIPID PANEL (94421) [facility]; [facility] Work Phone: Start: 12-08-2021 Cyclic citrullinated peptide antibody CCP ANTIBODY (68715) [facility]; [facility] Work Phone: Start: 12-08-2021 Sedimentation rate rbc non-automated SED RATE ERYTHROCYTE (08740) [facility]; [facility] Work Phone: Start: 12-08-2021 C-reactive protein C-REACTIVE PROTEIN (80194) [facility]; [facility] Work Phone: Start: 12-08-2021 Assay of thyroid stimulating hormone tsh TSH (23001) [facility]; [facility] Work Phone: Start: 12-08-2021 Rheumatoid factor quantitative RHEUMATOID FACTOR-QUANT (46654) [facility]; [facility] Work Phone: Start: 12-08-2021 Antinuclear antibodies blanka BLANKA (ANTINUCLEAR ANTIBODY) (51150) [facility]; [facility] Work Phone: Start: 12-08-2021 Comprehensive metabolic panel METABOLIC PANEL, COMPREHENSIVE (12516) [facility]; [facility] Work Phone: Start: 12-08-2021 Blood count manual cell count each CBC with auto diff (78276) [facility]; [facility] Work Phone: Start: 12-08-2021 Procedure Education Eprescribed prescriptions (G8553) [facility]; [facility] Work Phone: Start: 10-16-2021 Influenza vaccination INFLUENZA (#1) [facility] Start: 05-30-2021 End: 05-30-2021 Patient encounter procedure Appointment [facility] Work Phone: Start: 05-27-2021 End: 05-27-2021 Patient encounter procedure Appointment [facility] Work Phone: Start: 05-27-2021 End: 05-27-2021 Radex hand minimum 3 views XR HAND 3+ VWS-RT [facility] Work Phone: Start: 02-15-2021 DEPRESSION ASSESSMENT DEPRESSION ASSESSMENT [facility] Start: 06-27-2020 COVID-19 VACCINE (3 - Booster for Pfizer series) COVID-19 VACCINE (3 - Booster for Pfizer series) [facility] Start: 2020 Mammography MAMMOGRAM [facility] Start: 12-08-2019 Procedure Education Eprescribed prescriptions (G8553) [facility] Work Phone: Start: 12-08-2019 Provider Instructions for Treatment [facility] Work Phone: Start: 12-08-2019 HbA1c (Bld) [Mass fraction] HGB A1C (43190) [facility] Work Phone: Start: 12-08-2019 Hemoglobin glycosylated a1c HGB A1C (45937) [facility]; [facility] Work Phone: Start: 09-25-2019 HPV TESTING HPV TESTING [facility] Start: 09-25-2019 PAP TESTING PAP TESTING [facility] Start: 03-18-2017 Procedure Education Eprescribed prescriptions (G8553) [facility] Work Phone: Start: 12-08-2016 End: 12-08-2016 Appointment Appointment [facility] Work Phone: Start: 09-03-2016 End: 09-03-2016 Appointment Appointment [facility] Work Phone: Start: 09-02-2016 End: 09-02-2016 Appointment Appointment [facility] Work Phone: Start: 08-31-2016 End: 08-31-2016 Follow up Appt 2x/week Follow up Appt 2x/week [facility] Work Phone: Start: 08-31-2016 End: 08-31-2016 Appointment Appointment [facility] Work Phone: Start: 08-31-2016 End: 08-31-2016 Follow up Appt 2x/week Follow up Appt 2x/week [facility] Work Phone: Start: 08-27-2016 End: 08-27-2016 Follow up Appt 2x/week Follow up Appt 2x/week [facility] Work Phone: Start: 08-27-2016 End: 08-27-2016 Appointment Appointment [facility] Work Phone: Start: 08-26-2016 End: 08-27-2016 Follow up Appt 2x/week Follow up Appt 2x/week [facility] Work Phone: Start: 08-26-2016 End: 08-26-2016 Appointment Appointment [facility] Work Phone: Start: 08-26-2016 End: 08-27-2016 Follow up Appt 2x/week Follow up Appt 2x/week [facility] Work Phone: Start: 09-24-2014 Procedure Education Eprescribed prescriptions (G8553) [facility] Work Phone: Start: 09-24-2014 Provider Instructions for Treatment [facility] Work Phone: Start: 09-20-2014 Patient Education Kidney Stones *: kidney stone [facility] Work Phone: Start: 09-20-2014 Provider Instructions for Treatment [facility] Work Phone: Start: 05-18-2013 Patient Education Anxiety: anxiety [facility] Work Phone: Start: 04-14-2013 Provider Instructions for Treatment Follow up in 1 month [facility] Work Phone: Start: 08-29-2010 Provider Instructions for Treatment [facility] Work Phone: Start: 08-29-2010 Cytp cerv/vag auto thin layer prep mnl screen Thin prep Pap (74095) (no STD testing) [facility] Work Phone: Start: 04-14-2010 Provider Instructions for Treatment [facility] Work Phone: Start: 02-12-2010 Provider Instructions for Treatment FOLLOW UP IN 1 MONTH [facility] Work Phone: Start: 02-12-2010 Lipid panel LIPID PANEL (94543) [facility] Work Phone: Start: 02-12-2010 Glucose [Mass/Vol] Glucose, PP/2 Hour (86069) [facility] Work Phone: Start: 02-12-2010 Glucose quantitative blood xcpt reagent strip Glucose, PP/2 Hour (03100) [facility]; [facility] Work Phone: Start: 02-12-2010 Assay of thyroid stimulating hormone tsh TSH (49005) [facility]; [facility] Work Phone: Start: 02-12-2010 TSH Qn TSH (00543) [facility] Work Phone: Start: 05-11-1999 Urine microalbumin profile DTAP,TDAP,TD (1 - Tdap) [facility] Start: 1998 HEPATITIS C SCREENING HEPATITIS C SCREENING [facility] Start: 1998 HIV SCREENING HIV SCREENING [facility] Start: 1980 HEPATITIS B (1 of 3 - 3-dose series) HEPATITIS B (1 of 3 - 3-dose series) [facility] Patient Education \cps-sql1\CPS_ PtEducati on\CDC_FALL_PREVENTION. pdf [facility] Work Phone: RAPID STREP TEST B/O RAPID STREP TEST B/O Lab Routine Sorethroat Ordered: 02/05/2022 [facility] Work Phone: Payers Date Payer Category Payer Unknown 2015 Unknown [id number] 2009 Unknown [id number] 1980 Unknown [id number] Social History Date Type Detail Facility Alcohol Use: Alcohol Use: [facility] Work Phone: Exercise History: Exercise History: [facility] Work Phone: Clinical Notes 03-12-2009 to 07-01-2022 Ben Willard MD - 06/29/2022 12:17 PM EDTTelephone Encounter - Arabella Solano MA - 02/06/2022 8:25 AM ESTTelephone Encounter - Carmenza Kwan PA-C - 02/06/2022 7:14 AM EST Note Date & Type Note Facility 07-01-2022 Note HNO ID: [id number] Author: RT Marline(R) Service: ? Author Type: Ship Propeller Finisher Type: Progress Notes Filed: 07/01/2022 5:10 PM Note Text: Radiology Service Progress Note PATIENT NAME: Sadi Bryson DATE OF SERVICE: July 01, 2022 TIME: 4:57 PM PATIENT IDENTITY VERIFICATION COMPLETED USING TWO (2) IDENTIFIERS: Name and Date of confirmed by patient verbally. FALL SCREENING: Has the patient had 2 falls in the last year or 1 fall with injury or currently using an Ambulatory Assistive Device (Walker, Cane, Wheelchair, Crutches, etc.)? No PATIENT GENDER DATA: Female. status: : No status: NO. PATIENT RELEVANT IMPLANT DATA REVIEWED: Yes RADIOLOGY DEPARTMENT: General X-ray: Exam(s) Completed: Chest X-Ray PERIPHERAL IV DATA: Not applicable SIGNED BY: Gina Manzo, RT(R) July 01, 2022 4:57 PM [facility] 07-01-2022 Note HNO ID: [id number] Author: Charlie Rose APRN.PATIENT COORDINATOR Service: ? Author Type: Nurse Practitioner Type: Progress Notes Filed: 07/01/2022 5:28 PM Note Text: Subjective HPI Nontoxic-appearing female presents urgent care chief complaint cough fever. Duration of symptoms 5 days. Associated symptoms cough fever. Patient was seen here on Wednesday. Diagnosed with pharyngitis. Strep test was negative. Developed a fever the last 24 hours. States cough is productive. Does have some shortness of breath with walking upstairs. 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 OTC medication use Motrin for fever management good success. Denies any chest pain hemoptysis nausea vomiting abdominal pain or change in bowel or bladder habits. Past medical history prescription medications allergies reviewed. Denies chance of . Is not breast-feeding. .Patient presents with: Chest Congestion: sob, cough, fever x 5 days PAST MEDICAL HISTORY Diagnosis Date Dysthymic disorder Depression (non-psychotic) PMH - PAST MEDICAL HISTORY OF PCOD PAST SURGICAL HISTORY Procedure Laterality Date DELIVERY ONLY 07/30/2006,05/02/2009 , low cervical KIDNEY STONE SURGERY HX 09/17/2014 kidney stones removed rigth kidney LAPAROSCOPY SURG CHOLECYSTECTOMY Cholecystectomy, lap ALLERGIES Patient has no known allergies. MEDICATIONS Norethindrone, Contraceptive, 0.35 mg tablet Take by mouth. pioglitazone-metFORMIN 15-500 mg per tablet Take by mouth q 24 HR. levothyroxine (SYNTHROID) 75 mcg tablet Take 75 mcg by mouth daily before breakfast. citalopram (CELEXA) 20 mg tablet Take 20 mg by mouth once daily. metFORMIN (GLUCOPHAGE) 500 mg tablet Take 500 mg by mouth daily with breakfast. (Patient not taking: Reported on 04/11/2021 ) medroxyPROGESTERone (PROVERA) 10 mg tablet Take 1 tablet by mouth once daily. (Patient not taking: Reported on 11/24/2017 ) FAMILY HISTORY Problem Relation Age of Onset Alcohol/Drug Father Breast Cancer Other MGGM Cancer Other PGGM, OVARIAN CANCER Hypertension Maternal Grandfather Cancer Paternal Grandmother CERVICAL CANCER Social History Tobacco Use Smoking status: Never Smokeless tobacco: Never Substance Use Topics Alcohol use: Yes Comment: Seldom,NOT WHILE Drug use: No BP 126/80 Pulse 106 Temp (!) 38.4 ?C (101.2 ?F) Resp 18 Wt (!) 155.6 kg (343 lb) LMP 06/11/2014 (Approximate) SpO2 94% BMI 51.39 kg/m? Review of Systems Constitutional: Positive for fever and malaise/fatigue. Negative for chills. HENT: Negative for congestion, ear discharge, ear pain, sinus pain and sore throat. Eyes: Negative for blurred vision, pain, discharge and redness. Respiratory: Positive for cough and sputum production. Negative for hemoptysis, shortness of breath, wheezing and stridor. Cardiovascular: Negative for chest pain. Gastrointestinal: Negative for abdominal pain, diarrhea, nausea and vomiting. Musculoskeletal: Positive for myalgias. Skin: Negative for itching and rash. Neurological: Negative for dizziness and headaches. Objective Physical Exam Constitutional: General: She is not in acute distress. Appearance: She is not diaphoretic. HENT: Head: Normocephalic. Nose: Nose normal. Mouth/Throat: Mouth: Mucous membranes are moist. Pharynx: Oropharynx is clear. No oropharyngeal exudate or posterior oropharyngeal erythema. Eyes: Conjunctiva/sclera: Conjunctivae normal. Pupils: Pupils are equal, round, and reactive to light. Cardiovascular: Rate and Rhythm: Normal rate and regular rhythm. Heart sounds: Normal heart sounds. Pulmonary: Effort: Pulmonary effort is normal. No tachypnea, accessory muscle usage or respiratory distress. Breath sounds: No stridor. Rales present. No wheezing or rhonchi. Abdominal: Palpations: Abdomen is soft. Tenderness: There is no abdominal tenderness. There is no guarding or rebound. Musculoskeletal: Cervical back: Normal range of motion and neck supple. No rigidity or tenderness. Lymphadenopathy: Cervical: No cervical adenopathy. Skin: General: Skin is warm and dry. Neurological: Mental Status: She is alert and oriented to person, place, and time. ASSESSMENT/PLAN: 1. Fever, unspecified fever cause - ICD9: 780.60, ICD10: R50.9 (primary diagnosis) - XR CHEST 2V FRONTAL/LAT 2. Acute cough - ICD9: 786.2, ICD10: R05.1 - XR CHEST 2V FRONTAL/LAT IMPRESSION: No definite acute radiographic abnormality. Negative COVID-19 home test. Declined flu testing today's visit. No definite acute radiographic abnormality is noted on x-ray however with patient's new onset fever adventitious lung sounds I will place patient on doxycycline. We will treat for acute lower respiratory tract infection. Follow-up with PCP next 2 to 3 days reevaluation. Red flags prompt reevaluation discussed. Supportive therapies discussed. Be seen urgent care or ED for any (more content not included)... [facility] 06-29-2022 Note HNO ID: [id number] Author: Ben Willard MD Service: ? Author Type: Physician Type: Progress Notes Filed: 06/29/2022 12:26 PM Note Text: Patient presents with: Sore Throat: NINO, body ache x 1 week HPI: Feeling sick for 1 week. Positive symptoms: Sore throat, Body Aches, Headache, Cough, Nasal Congestion, Malaise, Fatigue, Nausea, clogged ears, some wheezing Negative symptoms: Shortness of breath, Fever, Vomiting, Diarrhea, OTC: none. Usually no seasonal allergies. MEDICATIONS: Current Outpatient Medications Medication Sig Norethindrone, Contraceptive, 0.35 mg tablet Take by mouth. pioglitazone-metFORMIN 15-500 mg per tablet Take by mouth q 24 HR. levothyroxine (SYNTHROID) 75 mcg tablet Take 75 mcg by mouth daily before breakfast. citalopram (CELEXA) 20 mg tablet Take 20 mg by mouth once daily. metFORMIN (GLUCOPHAGE) 500 mg tablet Take 500 mg by mouth daily with breakfast. (Patient not taking: Reported on 04/11/2021 ) medroxyPROGESTERone (PROVERA) 10 mg tablet Take 1 tablet by mouth once daily. (Patient not taking: Reported on 11/24/2017 ) No current facility-administered medications for this visit. ALLERGIES: ALLERGIES No Known Allergies VITALS: BP 130/90 Pulse 95 Temp 37.3 ?C (99.1 ?F) Resp 21 Wt (!) 156.5 kg (345 lb) LMP 06/11/2014 (Approximate) SpO2 98% BMI 51.69 kg/m? PHYSICAL EXAM: GEN: mildly ill appearing HEENT: PERRL, EOMI, conjunctiva clear Ears: canals clear. TMs without erythema, bulge, or effusion Sinuses: non-tender frontal sinus, non-tender maxillary sinuses Throat: moist mucous membranes, mild erythema, no exudate; hoarse voice Neck: supple, no thyromegaly, no lymphadenopathy HEART: regular rate and rhythm, no murmurs LUNGS: clear to auscultation, no wheezes or crackles, no increased WOB ASSESSMENT/PLAN: 1. Sore throat - ICD9: 462, ICD10: J02.9 - suspect viral URI, differential includes COVID-19. - Discussed supportive care treatment with rest, cold medicine, and analgesia. - Red flags to seek further treatment include chest pain, shortness of breath, and lethargy; in the ER if severe. - STREP A MOLECULAR (POC) - negative She will take a home COVID test. Ben Willard MD [facility] 06-29-2022 History of Presen t illness Narrative Patient presents with: Sore Throat: NINO, body ache x 1 week HPI: Feeling sick for 1 week. Positive symptoms: Sore throat, Body Aches, Headache, Cough, Nasal Congestion, Malaise, Fatigue, Nausea, clogged ears, some wheezing Negative symptoms: Shortness of breath, Fever, Vomiting, Diarrhea, OTC: none. Usually no seasonal allergies. MEDICATIONS: Current Outpatient Medications Medication Sig Norethindrone, Contraceptive, 0.35 mg tablet Take by mouth. pioglitazone-metFORMIN 15-500 mg per tablet Take by mouth q 24 HR. levothyroxine (SYNTHROID) 75 mcg tablet Take 75 mcg by mouth daily before breakfast. citalopram (CELEXA) 20 mg tablet Take 20 mg by mouth once daily. metFORMIN (GLUCOPHAGE) 500 mg tablet Take 500 mg by mouth daily with breakfast. (Patient not taking: Reported on 04/11/2021 ) medroxyPROGESTERone (PROVERA) 10 mg tablet Take 1 tablet by mouth once daily. (Patient not taking: Reported on 11/24/2017 ) No current facility-administered medications for this visit. ALLERGIES: ALLERGIES No Known Allergies VITALS: BP 130/90 Pulse 95 Temp 37.3 C (99.1 F) Resp 21 Wt (!) 156.5 kg (345 lb) LMP 06/11/2014 (Approximate) SpO2 98% BMI 51.69 kg/m PHYSICAL EXAM: GEN: mildly ill appearing HEENT: PERRL, EOMI, conjunctiva clear Ears: canals clear. TMs without erythema, bulge, or effusion Sinuses: non-tender frontal sinus, non-tender maxillary sinuses Throat: moist mucous membranes, mild erythema, no exudate; hoarse voice Neck: supple, no thyromegaly, no lymphadenopathy HEART: regular rate and rhythm, no murmurs LUNGS: clear to auscultation, no wheezes or crackles, no increased WOB ASSESSMENT/PLAN: 1. Sore throat - ICD9: 462, ICD10: J02.9 - suspect viral URI, differential includes COVID-19. - Discussed supportive care treatment with rest, cold medicine, and analgesia. - Red flags to seek further treatment include chest pain, shortness of breath, and lethargy; in the ER if severe. - STREP A MOLECULAR (POC) - negative She will take a home COVID test. Ben Willard MD documented in this encounter [facility] 02-06-2022 Miscellaneous Notes Patient notified of results, verbalized understanding of instructions given, declines Tamiflu treatment and will otherwise use OTC medication as necessary. Arabella Solano MA Please call and let patient know she did test positive for influenza A. She is in the window for Tamiflu treatment if she was interested in this. Otherwise voui-vqi-[id number] medications as needed. Follow-up with PCP if not improving over the next 3 to 5 days. documented in this encounter [facility] 02-05-2022 Influenza virus A and B RNA and SARS-CoV-2 (COVID-19) N gene panel MARY+probe (Resp) COVID 19 RESULT: SARS-CoV-2 (Agent of COVID-19) Not Detected by RT-PCR or equivalent method. oc [id number] (CHELO)_EUA This test was developed and its performance characteristics determined by [facility]'s [facility]. This test has been authorized by FDA under an Emergency Use Authorization (EUA). This test has been validated in accordance with the FDA's Guidance Document Policy for Diagnostics Testing in Laboratories Certified to Perform High Complexity Testing under CLIA prior to Emergency use Authorization for Coronavirus Disease 2019 during the Public Health Emergency issued on April 15, 2019. Test performed by [facility], [facility], [address] [place] [address]. INFLUENZA A PCR: Positive for Influenza A by RT-PCR INFLUENZA B PCR: Negative for Influenza B by RT-PCR [facility] documented as of this encounter (statuses as of 12/24/2021) [facility] History of Past illness Narrative* Problem Noted Date Resolved Date Previous delivery, antepartum condition or complication 03/12/2009 05/15/2009 Supervision of other normal 03/12/2009 05/15/2009 Supervision of other normal 05/19/2006 05/08/2008 documented as of this encounter (statuses as of 02/06/2022) [facility] History of Past illness Narrative* Problem Noted Date Resolved Date Previous delivery, antepartum condition or complication 03/12/2009 05/15/2009 Supervision of other normal 03/12/2009 05/15/2009 Supervision of other normal 05/19/2006 05/08/2008 documented as of this encounter (statuses as of 02/07/2022) [facility] History of Past illness Narrative* Problem Noted Date Resolved Date Previous delivery, antepartum condition or complication 03/12/2009 05/15/2009 Supervision of other normal 03/12/2009 05/15/2009 Supervision of other normal 05/19/2006 05/08/2008 documented as of this encounter (statuses as of 06/29/2022) [facility] note[facility] may be information available, but it has not been provided by the sender.[facility] Work Phone: Evaluation note* Diagnosis URI, acute- Primary Acute upper respiratory infections of unspecified site Acute otitis media, left Unspecified otitis media [facility]ore[facility]at- Primary [facility] Sore throat- Primary Acute pharyngitis [facility] Name Dates Details How to access health informa tion online Indication:Non-smoker Start:08-Dec-2019 Instruction Type:Patient Education How to access health informa tion online - Detail Indication:Non-smoker Start:08-Dec-2019 Instruction Type:Patient Education Patient Instructions Indication:Non-smoker Start:08-Dec-2019 Instruction Type:Provider Instructions for Treatment How to access health informa tion online Indication:Flu-like symptoms Start:18-Mar-2017 Instruction Type:Patient Education How to access health informa tion online - Detail Indication:Flu-like symptoms Start:18-Mar-2017 Instruction Type:Patient Education Patient Instructions Indication:Flu-like symptoms Start:18-Mar-2017 Instruction Type:Provider Instructions for Treatment How to access health informa tion online Indication:Thyromegaly Start:24-Sep-2014 Instruction Type:Patient Education How to access health informa tion online - Detail Indication:Thyromegaly Start:24-Sep-2014 Instruction Type:Patient Education Patient Instructions Indication:Thyromegaly Start:24-Sep-2014 Instruction Type:Provider Instructions for Treatment How to access health informa tion online Indication:Hypomagnesemia Start:24-Sep-2014 Instruction Type:Patient Education How to access health informa tion online - Detail Indication:Hypomagnesemia Start:24-Sep-2014 Instruction Type:Patient Education Patient Instructions Indication:Hypomagnesemia Start:24-Sep-2014 Instruction Type:Provider Instructions for Treatment How to access health informa tion online Indication:Kidney stones Start:20-Sep-2014 Instruction Type:Patient Education How to access health informa tion online - Detail Indication:Kidney stones Start:20-Sep-2014 Instruction Type:Patient Education Patient Instructions Indication:Kidney stones Start:20-Sep-2014 Instruction Type:Provider Instructions for Treatment Patient Instructions Indication:Anxiety and depression Start:18-May-2013 Instruction Type:Provider Instructions for Treatment Patient Instructions Indication:Anxiety and depression Start:14-Apr-2013 Instruction Type:Provider Instructions for Treatment [facility] Work Phone: Instructions* Name Dates Details How to access health informa tion online Indication:Non-smoker Start:08-Dec-2019 Instruction Type:Patient Education How to access health informa tion online - Detail Indication:Non-smoker Start:08-Dec-2019 Instruction Type:Patient Education Patient Instructions Indication:Non-smoker Start:08-Dec-2019 Instruction Type:Provider Instructions for Treatment How to access health informa tion online Indication:Flu-like symptoms Start:18-Mar-2017 Instruction Type:Patient Education How to access health informa tion online - Detail Indication:Flu-like symptoms Start:18-Mar-2017 Instruction Type:Patient Education Patient Instructions Indication:Flu-like symptoms Start:18-Mar-2017 Instruction Type:Provider Instructions for Treatment How to access health informa tion online Indication:Thyromegaly Start:24-Sep-2014 Instruction Type:Patient Education How to access health informa tion online - Detail Indication:Thyromegaly Start:24-Sep-2014 Instruction Type:Patient Education Patient Instructions Indication:Thyromegaly Start:24-Sep-2014 Instruction Type:Provider Instructions for Treatment How to access health informa tion online Indication:Hypomagnesemia Start:24-Sep-2014 Instruction Type:Patient Education How to access health informa tion online - Detail Indication:Hypomagnesemia Start:24-Sep-2014 Instruction Type:Patient Education Patient Instructions Indication:Hypomagnesemia Start:24-Sep-2014 Instruction Type:Provider Instructions for Treatment How to access health informa tion online Indication:Kidney stones Start:20-Sep-2014 Instruction Type:Patient Education How to access health informa tion online - Detail Indication:Kidney stones Start:20-Sep-2014 Instruction Type:Patient Education Patient Instructions Indication:Kidney stones Start:20-Sep-2014 Instruction Type:Provider Instructions for Treatment Patient Instructions Indication:Anxiety and depression Start:18-May-2013 Instruction Type:Provider Instructions for Treatment Patient Instructions Indication:Anxiety and depression Start:14-Apr-2013 Instruction Type:Provider Instructions for Treatment [facility]; [facility] Work Phone: InstructionsNo information available.[facility] Work Phone: Instructions* Name Dates Details How to access health informa tion online Indication:Non-smoker Start:08-Dec-2019 Instruction Type:Patient Education How to access health informa tion online - Detail Indication:Non-smoker Start:08-Dec-2019 Instruction Type:Patient Education Patient Instructions Indication:Non-smoker Start:08-Dec-2019 Instruction Type:Provider Instructions for Treatment How to access health informa tion online Indication:Flu-like symptoms Start:18-Mar-2017 Instruction Type:Patient Education How to access health informa tion online - Detail Indication:Flu-like symptoms Start:18-Mar-2017 Instruction Type:Patient Education Patient Instructions Indication:Flu-like symptoms Start:18-Mar-2017 Instruction Type:Provider Instructions for Treatment How to access health informa tion online Indication:Thyromegaly Start:24-Sep-2014 Instruction Type:Patient Education How to access health informa tion online - Detail Indication:Thyromegaly Start:24-Sep-2014 Instruction Type:Patient Education Patient Instructions Indication:Thyromegaly Start:24-Sep-2014 Instruction Type:Provider Instructions for Treatment How to access health informa tion online Indication:Hypomagnesemia Start:24-Sep-2014 Instruction Type:Patient Education How to access health informa tion online - Detail Indication:Hypomagnesemia Start:24-Sep-2014 Instruction Type:Patient Education Patient Instructions Indication:Hypomagnesemia Start:24-Sep-2014 Instruction Type:Provider Instructions for Treatment How to access health informa tion online Indication:Kidney stones Start:20-Sep-2014 Instruction Type:Patient Education How to access health informa tion online - Detail Indication:Kidney stones Start:20-Sep-2014 Instruction Type:Patient Education Patient Instructions Indication:Kidney stones Start:20-Sep-2014 Instruction Type:Provider Instructions for Treatment Patient Instructions Indication:Anxiety and depression Start:18-May-2013 Instruction Type:Provider Instructions for Treatment Patient Instructions Indication:Anxiety and depression Start:14-Apr-2013 Instruction Type:Provider Instructions for Treatment [facility]; [facility] Work Phone: Instructions* Name Dates Details How to access health informa tion online Indication:Non-smoker Start:08-Dec-2019 Instruction Type:Patient Education How to access health informa tion online - Detail Indication:Non-smoker Start:08-Dec-2019 Instruction Type:Patient Education Patient Instructions Indication:Non-smoker Start:08-Dec-2019 Instruction Type:Provider Instructions for Treatment How to access health informa tion online Indication:Flu-like symptoms Start:18-Mar-2017 Instruction Type:Patient Education How to access health informa tion online - Detail Indication:Flu-like symptoms Start:18-Mar-2017 Instruction Type:Patient Education Patient Instructions Indication:Flu-like symptoms Start:18-Mar-2017 Instruction Type:Provider Instructions for Treatment How to access health informa tion online Indication:Thyromegaly Start:24-Sep-2014 Instruction Type:Patient Education How to access health informa tion online - Detail Indication:Thyromegaly Start:24-Sep-2014 Instruction Type:Patient Education Patient Instructions Indication:Thyromegaly Start:24-Sep-2014 Instruction Type:Provider Instructions for Treatment How to access health informa tion online Indication:Hypomagnesemia Start:24-Sep-2014 Instruction Type:Patient Education How to access health informa tion online - Detail Indication:Hypomagnesemia Start:24-Sep-2014 Instruction Type:Patient Education Patient Instructions Indication:Hypomagnesemia Start:24-Sep-2014 Instruction Type:Provider Instructions for Treatment How to access health informa tion online Indication:Kidney stones Start:20-Sep-2014 Instruction Type:Patient Education How to access health informa tion online - Detail Indication:Kidney stones Start:20-Sep-2014 Instruction Type:Patient Education Patient Instructions Indication:Kidney stones Start:20-Sep-2014 Instruction Type:Provider Instructions for Treatment Patient Instructions Indication:Anxiety and depression Start:18-May-2013 Instruction Type:Provider Instructions for Treatment Patient Instructions Indication:Anxiety and depression Start:14-Apr-2013 Instruction Type:Provider Instructions for Treatment [facility] Work Phone: Instructions* Name Dates Details Patient Instructions Indication:Obesity, morbid Start:08-Dec-2021 Instruction Type:Provider Instructions for Treatment How to Access Health Informa tion Online using Patient Portal and [employer] Indication:Obesity, morbid Start:08-Dec-2021 Instruction Type:Patient Education How to access health informa tion online Indication:Non-smoker Start:08-Dec-2019 Instruction Type:Patient Education How to access health informa tion online - Detail Indication:Non-smoker Start:08-Dec-2019 Instruction Type:Patient Education Patient Instructions Indication:Non-smoker Start:08-Dec-2019 Instruction Type:Provider Instructions for Treatment How to access health informa tion online Indication:Flu-like symptoms Start:18-Mar-2017 Instruction Type:Patient Education How to access health informa tion online - Detail Indication:Flu-like symptoms Start:18-Mar-2017 Instruction Type:Patient Education Patient Instructions Indication:Flu-like symptoms Start:18-Mar-2017 Instruction Type:Provider Instructions for Treatment How to access health informa tion online Indication:Thyromegaly Start:24-Sep-2014 Instruction Type:Patient Education How to access health informa tion online - Detail Indication:Thyromegaly Start:24-Sep-2014 Instruction Type:Patient Education Patient Instructions Indication:Thyromegaly Start:24-Sep-2014 Instruction Type:Provider Instructions for Treatment How to access health informa tion online Indication:Hypomagnesemia Start:24-Sep-2014 Instruction Type:Patient Education How to access health informa tion online - Detail Indication:Hypomagnesemia Start:24-Sep-2014 Instruction Type:Patient Education Patient Instructions Indication:Hypomagnesemia Start:24-Sep-2014 Instruction Type:Provider Instructions for Treatment How to access health informa tion online Indication:Kidney stones Start:20-Sep-2014 Instruction Type:Patient Education How to access health informa tion online - Detail Indication:Kidney stones Start:20-Sep-2014 Instruction Type:Patient Education Patient Instructions Indication:Kidney stones Start:20-Sep-2014 Instruction Type:Provider Instructions for Treatment Patient Instructions Indication:Anxiety and depression Start:18-May-2013 Instruction Type:Provider Instructions for Treatment Patient Instructions Indication:Anxiety and depression Start:14-Apr-2013 Instruction Type:Provider Instructions for Treatment [facility] Work Phone: Instructions* Name Dates Details Patient Instructions Indication:Obesity, morbid Start:08-Dec-2021 Instruction Type:Provider Instructions for Treatment How to Access Health Informa tion Online using Patient Portal and [employer] Indication:Obesity, morbid Start:08-Dec-2021 Instruction Type:Patient Education How to access health informa tion online Indication:Non-smoker Start:08-Dec-2019 Instruction Type:Patient Education How to access health informa tion online - Detail Indication:Non-smoker Start:08-Dec-2019 Instruction Type:Patient Education Patient Instructions Indication:Non-smoker Start:08-Dec-2019 Instruction Type:Provider Instructions for Treatment How to access health informa tion online Indication:Flu-like symptoms Start:18-Mar-2017 Instruction Type:Patient Education How to access health informa tion online - Detail Indication:Flu-like symptoms Start:18-Mar-2017 Instruction Type:Patient Education Patient Instructions Indication:Flu-like symptoms Start:18-Mar-2017 Instruction Type:Provider Instructions for Treatment How to access health informa tion online Indication:Thyromegaly Start:24-Sep-2014 Instruction Type:Patient Education How to access health informa tion online - Detail Indication:Thyromegaly Start:24-Sep-2014 Instruction Type:Patient Education Patient Instructions Indication:Thyromegaly Start:24-Sep-2014 Instruction Type:Provider Instructions for Treatment How to access health informa tion online Indication:Hypomagnesemia Start:24-Sep-2014 Instruction Type:Patient Education How to access health informa tion online - Detail Indication:Hypomagnesemia Start:24-Sep-2014 Instruction Type:Patient Education Patient Instructions Indication:Hypomagnesemia Start:24-Sep-2014 Instruction Type:Provider Instructions for Treatment How to access health informa tion online Indication:Kidney stones Start:20-Sep-2014 Instruction Type:Patient Education How to access health informa tion online - Detail Indication:Kidney stones Start:20-Sep-2014 Instruction Type:Patient Education Patient Instructions Indication:Kidney stones Start:20-Sep-2014 Instruction Type:Provider Instructions for Treatment Patient Instructions Indication:Anxiety and depression Start:18-May-2013 Instruction Type:Provider Instructions for Treatment Patient Instructions Indication:Anxiety and depression Start:14-Apr-2013 Instruction Type:Provider Instructions for Treatment [facility] Work Phone: Family History No Family History Records FoundUnknown Family Member Name Dates Details Breast Cancer Comments:Maternal Grandmothe r. First Degree Relatives. Great Status:Active Diabetes Mellitus Comments:Maternal Grandmothe r. Great Status:Active Hypertension Comments:Maternal Grandfathe r. Status:Active Unknown Family Member Name Dates Details Breast Cancer Comments:Maternal Grandmothe r. First Degree Relatives. Great Status:Active Diabetes Mellitus Comments:Maternal Grandmothe r. Great Status:Active Hypertension Comments:Maternal Grandfathe r. Status:Active Unknown Family Member Name Dates Details Breast Cancer Comments:Maternal Grandmothe r. First Degree Relatives. Great Status:Active Diabetes Mellitus Comments:Maternal Grandmothe r. Henry Status:Active Hypertension Comments:Maternal Grandfathe r. Status:Active Unknown Family Member Name Dates Details Breast Cancer Comments:Maternal Grandmothe r. First Degree Relatives. Great Status:Active Diabetes Mellitus Comments:Maternal Grandmothe r. Great Status:Active Hypertension Comments:Maternal Grandfathe r. Status:Active Unknown Family Member Name Dates Details Breast Cancer Comments:Maternal Grandmothe r. First Degree Relatives. Great Status:Active Diabetes Mellitus Comments:Maternal Grandmothe r. Great Status:Active Hypertension Comments:Maternal Grandfathe r. Status:Active Unknown Family Member Name Dates Details Breast Cancer Comments:Maternal Grandmothe r. First Degree Relatives. Great Status:Active Diabetes Mellitus Comments:Maternal Grandmothe r. Great Status:Active Hypertension Comments:Maternal Grandfathe r. Status:Active Unknown Family Member Name Dates Details Breast Cancer Comments:Maternal Grandmothe r. First Degree Relatives. Great Status:Active Diabetes Mellitus Comments:Maternal Grandmothe r. Henry Status:Active Hypertension Comments:Maternal Grandfathe r. Status:Active Unknown Family Member Name Dates Details Breast Cancer Comments:Maternal Grandmothe r. First Degree Relatives. Great Status:Active Diabetes Mellitus Comments:Maternal Grandmothe r. Henry Status:Active Hypertension Comments:Maternal Grandfathe r. Status:Active Instructions Name Dates Details How to access health informa tion online Indication:Non-smoker Start:08-Dec-2019 Instruction Type:Patient Education How to access health informa tion online - Detail Indication:Non-smoker Start:08-Dec-2019 Instruction Type:Patient Education Patient Instructions Indication:Non-smoker Start:08-Dec-2019 Instruction Type:Provider Instructions for Treatment How to access health informa tion online Indication:Flu-like symptoms Start:18-Mar-2017 Instruction Type:Patient Education How to access health informa tion online - Detail Indication:Flu-like symptoms Start:18-Mar-2017 Instruction Type:Patient Education Patient Instructions Indication:Flu-like symptoms Start:18-Mar-2017 Instruction Type:Provider Instructions for Treatment How to access health informa tion online Indication:Thyromegaly Start:24-Sep-2014 Instruction Type:Patient Education How to access health informa tion online - Detail Indication:Thyromegaly Start:24-Sep-2014 Instruction Type:Patient Education Patient Instructions Indication:Thyromegaly Start:24-Sep-2014 Instruction Type:Provider Instructions for Treatment How to access health informa tion online Indication:Hypomagnesemia Start:24-Sep-2014 Instruction Type:Patient Education How to access health informa tion online - Detail Indication:Hypomagnesemia Start:24-Sep-2014 Instruction Type:Patient Education Patient Instructions Indication:Hypomagnesemia Start:24-Sep-2014 Instruction Type:Provider Instructions for Treatment How to access health informa tion online Indication:Kidney stones Start:20-Sep-2014 Instruction Type:Patient Education How to access health informa tion online - Detail Indication:Kidney stones Start:20-Sep-2014 Instruction Type:Patient Education Patient Instructions Indication:Kidney stones Start:20-Sep-2014 Instruction Type:Provider Instructions for Treatment Patient Instructions Indication:Anxiety and depression Start:18-May-2013 Instruction Type:Provider Instructions for Treatment Patient Instructions Indication:Anxiety and depression Start:14-Apr-2013 Instruction Type:Provider Instructions for Treatment Name Dates Details How to access health informa tion online Indication:Non-smoker Start:08-Dec-2019 Instruction Type:Patient Education How to access health informa tion online - Detail Indication:Non-smoker Start:08-Dec-2019 Instruction Type:Patient Education Patient Instructions Indication:Non-smoker Start:08-Dec-2019 Instruction Type:Provider Instructions for Treatment How to access health informa tion online Indication:Flu-like symptoms Start:18-Mar-2017 Instruction Type:Patient Education How to access health informa tion online - Detail Indication:Flu-like symptoms Start:18-Mar-2017 Instruction Type:Patient Education Patient Instructions Indication:Flu-like symptoms Start:18-Mar-2017 Instruction Type:Provider Instructions for Treatment How to access health informa tion online Indication:Thyromegaly Start:24-Sep-2014 Instruction Type:Patient Education How to access health informa tion online - Detail Indication:Thyromegaly Start:24-Sep-2014 Instruction Type:Patient Education Patient Instructions Indication:Thyromegaly Start:24-Sep-2014 Instruction Type:Provider Instructions for Treatment How to access health informa tion online Indication:Hypomagnesemia Start:24-Sep-2014 Instruction Type:Patient Education How to access health informa tion online - Detail Indication:Hypomagnesemia Start:24-Sep-2014 Instruction Type:Patient Education Patient Instructions Indication:Hypomagnesemia Start:24-Sep-2014 Instruction Type:Provider Instructions for Treatment How to access health informa tion online Indication:Kidney stones Start:20-Sep-2014 Instruction Type:Patient Education How to access health informa tion online - Detail Indication:Kidney stones Start:20-Sep-2014 Instruction Type:Patient Education Patient Instructions Indication:Kidney stones Start:20-Sep-2014 Instruction Type:Provider Instructions for Treatment Patient Instructions Indication:Anxiety and depression Start:18-May-2013 Instruction Type:Provider Instructions for Treatment Patient Instructions Indication:Anxiety and depression Start:14-Apr-2013 Instruction Type:Provider Instructions for Treatment Chief Complaint Chief Complaint Description Start Date right hand post Closed reduc tion K wire fixation right third metacarpal fracture on 04/16/2021 Preliminary chief co mplaint data, not yet signed by the author as of Advance Directives There may be information available, but it has not been provided by the sender. No Advanced Directives Records FoundNo Advanced Directives Records Found Summary Purpose Health Concerns Infection Onset Date Last Indicated Resolved Time COVID-19 Rule-Out 12/23/2021 12/23/2021 12/24/2021 5:20 AM EST Additional Source Comments Reason for Visit (unrecogniz ed section and content) Reason Comments Cough Cough, chills, bodya ches, chest congestion and ear pain x 3 days Reason Comments Ear Pain Pt reported bilatera l ear pain rated 5, x1 day, cough, fever. Reason Comments Results Reason Comments Sore Throat NINO, body ache x 1 we ek INFORMATION SOURCE (unrecogn ized section and content) DATE CREATED AUTHOR AUTHOR'S ORGANIZ ATION 07/02/2022 [facility] Source Comments (unrecognize d section and content) In the event this informatio n is protected by the Federal Confidentiality of Alcohol and Drug Abuse Patient Records regulations: The Federal rules restrict any use of the information to criminally investigate or prosecute any alcohol or drug abuse patient.[facility] the event this information is protected by the Federal Confidentiality of Alcohol and Drug Abuse Patient Records regulations: The Federal rules restrict any use of the information to criminally investigate or prosecute any alcohol or drug abuse patient.[facility] the event this information is protected by the Federal Confidentiality of Alcohol and Drug Abuse Patient Records regulations: The Federal rules restrict any use of the information to criminally investigate or prosecute any alcohol or drug abuse patient.[facility] the event this information is protected by the Federal Confidentiality of Alcohol and Drug Abuse Patient Records regulations: The Federal rules restrict any use of the information to criminally investigate or prosecute any alcohol or drug abuse patient.[facility] Care Teams (unrecognized sec tion and content) Combiner Operator Relationship Specialty Start Date End Date Olive Jurado DO PCP - General Internal Medicine 08/19/10 Combiner Operator Relationship Specialty Start Date End Date Olive Jurado DO PCP - General Internal Medicine 08/19/10 Combiner Operator Relationship Specialty Start Date End Date Olive Jurado DO PCP - General Internal Medicine 08/19/10 FOR RECORDS PERTAINING TO PATIENTS WHO ARE OR HAVE BEEN ENROLLED IN A CHEMICAL DEPENDENCY/SUBSTANCEABUSE PROGRAM, SOME INFORMATION MAY BE OMITTED. This clinical summary was aggregated from multiple sources. Caution should be exercised in using it in the provision of clinical care. This summary normalizes information from multiple sources, and as a consequence, information in this document may materially change the coding, format and clinical context of patient data. In addition, data may be omitted in some cases. CLINICAL DECISIONS SHOULD BE BASED ON THE PRIMARY CLINICAL RECORDS. [employer] provides no warranty or guarantee of the accuracy or completeness of information in this document.
== END | disposition home or self-care (01) ==
PROVIDERS: PCP Internal Medicine; Referring Provider Internal Medicine; Visit Provider Internal Medicine
DX: E04.9 Nontoxic goiter, unspecified (principal)
CPT/HCPCS: 76536

== ENCOUNTER → 2023-07-13 | Outpatient (CLI) | payer OTHER, SELFPAY ==
--- NOTE | 2023-07-13 14:48 | BI_ITS ---
MAMMOGRAPHY - BILATERAL SCREENING REASON FOR EXAM: Female, 43 years old. Routine annual screening examination. PERTINENT HISTORY: Grandmother with breast cancer. TECHNIQUE: Digital bilateral breast vickie (3D mammographic acquisition) in the CC and MLO projections. 2-D mediolateral oblique (MLO) and craniocaudad (CC) views of both breasts were obtained. CAD: Full Field Digital Mammography with Computer Added Detection was performed. COMPARISON: Comparison is made with prior study June 30, 2022 and June 11, 2021. FINDINGS: Breast Composition: The breasts are almost entirely fatty. There are no dominant masses or suspicious calcifications. Stable small benign-appearing bilateral axillary lymph nodes. No other significant abnormalities are identified. There has been no significant change since the prior study. BI/SCRN MAMM (CAD)W/VICKIE BILAT IMPRESSION: Stable bilateral screening mammogram. Yearly follow-up mammogram recommended. (A) ASSESSMENT CATEGORY: BIRADS Category 2: Benign. A letter regarding these results will be sent to the patient by the facility within 30 days. Approximately 10% of breast cancers are not detected by mammography. A normal mammogram should not delay biopsy of a clinically suspicious abnormality. [id number] Electronically Signed: Elder Alarcon MD at 15:35 EDT ,
== END | disposition home or self-care (01) ==
LOC: OPBI 14:47
PROVIDERS: PCP Internal Medicine; Referring Provider Nurse Practitioner Women's Health; Visit Provider Nurse Practitioner Women's Health
DX: Z12.31 Encounter for screening mammogram for malignant neoplasm of breast (principal); Z80.3 Family history of malignant neoplasm of breast
CPT/HCPCS: 77063; 77067

== ENCOUNTER → 2024-06-26 | Outpatient (CLI) | payer OTHER, SELFPAY ==
[2024-06-29 11:08] LABS: HPV APTIMA, High Risk Negative (Negative)
== END | disposition home or self-care (01) ==
LOC: LABSPEC 15:48
PROVIDERS: PCP Internal Medicine; Referring Provider Nurse Practitioner Women's Health; Visit Provider Nurse Practitioner Women's Health
DX: Z12.4 Encounter for screening for malignant neoplasm of cervix (principal)
CPT/HCPCS: 87624; 88175; G0145

== ENCOUNTER → 2024-07-13 | Outpatient (CLI) | payer OTHER, SELFPAY ==
--- NOTE | 2024-07-13 08:45 | BI_ITS ---
EXAM: SCRN MAMM (CAD)W/VICKIE BILAT DATE: 07/13/2024 CLINICAL HISTORY: F, Age 44 y/o , SCREENING FOR BREAST CANCER Grandmother with breast cancer. BREAST CANCER RISK ASSESSMENT: Not assessed. TECHNIQUE: Bilateral screening digital breast tomosynthesis with 2D and 3D images. Computer aided detection. COMPARISON: Prior exam(s) dated July 13, 2023.. FINDINGS: TISSUE DENSITY: The breast tissue is composed of scattered area of fibroglandular density. Bilateral Breast Mammographic Findings: No significant masses, calcifications or other abnormalities are identified. There are no other dominant masses, areas of architectural distortion, or suspicious calcifications. BI/SCRN MAMM (CAD)W/VICKIE BILAT IMPRESSION: OVERALL FINAL ASSESSMENT: BIRADS 1 NEGATIVE RECOMMENDATION: Routine annual follow-up in 1 Year A letter with findings and recommendations will be mailed to the patient. Reading Location: [id number]
== END | disposition home or self-care (01) ==
LOC: OPBI 08:50
PROVIDERS: PCP Internal Medicine; Referring Provider Nurse Practitioner Women's Health; Visit Provider Nurse Practitioner Women's Health
DX: Z12.31 Encounter for screening mammogram for malignant neoplasm of breast (principal)
CPT/HCPCS: 77063; 77067

== ENCOUNTER → 2024-08-31 | Outpatient (CLI) | payer OTHER, SELFPAY ==
--- NOTE | 2024-08-31 12:39 | US_ITS ---
PROCEDURE: THYROID 08/31/2024 REASON FOR EXAM: THYROMEGALY TECHNIQUE: THYROID COMPARISON: Thyroid ultrasound on 03/23/2023 FINDINGS: Right thyroid lobe size: 4.8 x 1.6 x 1.9 cm Left thyroid lobe size: 5.0 x 1.2 x 2.0 cm Isthmus: 0.3 cm Background parenchymal echotexture is homogeneous. Nodules: 1. Lobe: Right, Location: Mid, Size: 0.5 x 0.4 x 0.6 cm, Stability: Stable Composition: Mixed cystic and solid (+1) Echogenicity: Hyper to Isoechoic (+1) Margin: Ill-defined (+0) Shape: Wider than tall (+0) Echogenic Foci: None (+0) TI-RADS: 2 2. Lobe: Right, Location: Lower, Size: 0.4 x 0.2 x 0.4 cm cm, Stability: Stable Composition: Cystic or mostly cystic (+0) Echogenicity: Anechoic (+0) Margin: Smooth (+0) Shape: Wider than tall (+0) Echogenic Foci: None (+0) TI-RADS: 1 US/Thyroid IMPRESSION: Nodules in the right thyroid lobe, which do not require follow-up per ACR TI-RA DS guidelines. Reading Location: [facility]
== END | disposition home or self-care (01) ==
LOC: US 12:37
PROVIDERS: PCP Internal Medicine; Referring Provider Internal Medicine; Visit Provider Internal Medicine
DX: E01.0 Iodine-deficiency related diffuse (endemic) goiter (principal)
CPT/HCPCS: 76536

== ENCOUNTER → 2024-11-24 | Outpatient (CLI) | payer OTHER, SELFPAY ==
[2024-11-27 10:08] LABS: Mumps Antibody,IgG 52.9 AU/mL (Immune >10.9)
== END | disposition home or self-care (01) ==
LOC: LAB 11:46
PROVIDERS: PCP Internal Medicine; Referring Provider Internal Medicine; Visit Provider Internal Medicine
DX: Z00.00 Encounter for general adult medical examination without abnormal findings (principal)
CPT/HCPCS: 36415; 86706; 86735; 86762; 86765; 86787

== ENCOUNTER → 2024-12-08 | Outpatient (CLI) | payer OTHER, SELFPAY ==
--- NOTE | 2024-12-08 10:06 | US_ITS ---
PROCEDURE: BREAST LIMITED UNILATERAL 12/08/2024 REASON FOR EXAM: F, Age 44 y/o , LEFT BREAST PAIN COMPARISON: Mammogram 07/05/2023. TECHNIQUE: Procedure Code: USBRSTLIMIT Modality: US Procedure: BREAST LIMITED UNILATERAL FINDINGS: Ultrasound performed of the area of patient's reported pain in the upper-outer quadrant of the left breast demonstrates no suspicious sonographic findings. There are no suspicious solid masses or abnormal cystic elements. US/Breast Limited Unilateral IMPRESSION: There are no suspicious sonographic findings in the left breast to account for the patient's reported pain. Clinical management is recommended for the pain. BI-RADS 1: NEGATIVE RECOMMENDATION: OTHER. Return to annual screening mammogram, next due in June 16. Reading Location: [id number]
== END | disposition home or self-care (01) ==
LOC: OPBI 10:02
PROVIDERS: PCP Internal Medicine; Referring Provider Nurse Practitioner Women's Health; Visit Provider Nurse Practitioner Women's Health
DX: N64.4 Mastodynia (principal); Z80.3 Family history of malignant neoplasm of breast
CPT/HCPCS: 76642

== ENCOUNTER → 2024-12-08 | Outpatient (CLI) | payer OTHER, SELFPAY ==
[2024-12-09 07:08] LABS: V-Zoster IgG (Immunity) Reactive (Non Reactive)
== END | disposition home or self-care (01) ==
LOC: LAB 10:56
PROVIDERS: PCP Internal Medicine; Referring Provider Internal Medicine; Visit Provider Internal Medicine
DX: Z00.00 Encounter for general adult medical examination without abnormal findings (principal)
CPT/HCPCS: 86787